=== PATIENT | male | born 1950 | race Two or more races ===

== ENCOUNTER → 2016-06-07 | Outpatient (CLI) | payer MEDICARE, MEDICAID ==
[~2016-06-07] MED LIST: CAR3125T PO; CLOP75TA28 PO; DIGO0.2570 PO; FURO20TA3 PO; SIMV10TA84 PO; SPIR25TA89 PO
== END | disposition home or self-care (01) ==
LOC: Rad HDHVI 09:02
PROVIDERS: ATTEND Internal Medicine Cardiovascular Disease
DX: I11.0 Hypertensive heart disease with heart failure (principal); I50.9 Heart failure, unspecified; I25.10 Atherosclerotic heart disease of native coronary artery without angina pectoris; R06.02 Shortness of breath; Z95.1 Presence of aortocoronary bypass graft
CPT/HCPCS: 71020

== ENCOUNTER → 2016-12-12 | Outpatient (CLI) | payer MEDICARE, MEDICAID ==
[2016-12-12 12:21] LABS: Basophils # (auto) 0.1 uL; Basophils % (auto) 0.8 % (0.0-2.0); CONDITION Y; Eosinophils # (auto) 0.2 uL; Eosinophils % (auto) 3.5 % (0.0-7.0); Hematocrit 45.8 % (41.0-53.0); Hemoglobin 15.4 g/dL (13.5-17.5); Lymphocytes # (auto) 2.9 uL; Lymphocytes % (auto) 43.3 % (10.0-50.0); Mean Corpuscular Hemoglobin 32.2 pg (28.0-32.0); Mean Corpuscular Hgb Conc. 33.6 g/dL (32.0-36.0); Mean Corpuscular Volume 95.9 fL (80.0-100.0); Mean Platelet Volume 9.8 fL (7.4-10.4); Monocytes # (auto) 0.5 uL; Monocytes % (auto) 7.8 % (0.0-12.0); Neutrophils % (auto) 44.6 % (37.0-80.0); Platelet Count (auto) 171 10^3/uL (140-450); Red Cell Distribution Width 14.5 % (11.6-16.0); White Blood Cell 6.7 10^3/uL (4.4-10.8)
[2016-12-12 12:40] LABS: Albumin 4.1 g/dL (3.4-5.0); BUN/Creatinine Ratio 13.8; Bilirubin, Direct 0.2 mg/dL (0-0.2); Bilirubin, Total 0.7 mg/dL (0.2-1.0); Calcium 9.8 mg/dL (8.5-10.1); Potassium 4.7 mmol/L (3.5-5.1); Total Protein 8.2 g/dL (6.4-8.2); Urine Bilirubin Negative (Negative); Urine Blood TRACE /uL (Negative); Urine Color Yellow (Yellow); Urine Glucose Normal (Normal); Urine Ketone Negative (Negative); Urine Nitrite Negative (Negative); Urine Urobilinogen Normal (Negative)
== END | disposition home or self-care (01) ==
LOC: LAB 08:14
PROVIDERS: ATTEND Internal Medicine Cardiovascular Disease
DX: E78.00 Pure hypercholesterolemia, unspecified (principal); I11.0 Hypertensive heart disease with heart failure; I50.21 Acute systolic (congestive) heart failure; K74.1 Hepatic sclerosis; E11.9 Type 2 diabetes mellitus without complications; R97.20 Elevated prostate specific antigen [PSA]; R53.81 Other malaise; E03.9 Hypothyroidism, unspecified; D64.9 Anemia, unspecified; E55.9 Vitamin D deficiency, unspecified; N39.0 Urinary tract infection, site not specified
CPT/HCPCS: 36415; 80048; 80061; 80076; 81003; 82306; 83036; 84153; 84403; 84443; 85025

== ENCOUNTER → 2017-01-30 | Outpatient (CLI) | payer MEDICARE, MEDICAID | END | disposition home or self-care (01) | LOC: LAB 08:28 | PROVIDERS: ATTEND Internal Medicine Cardiovascular Disease | DX: I25.10 Atherosclerotic heart disease of native coronary artery without angina pectoris (principal); J44.9 Chronic obstructive pulmonary disease, unspecified | CPT/HCPCS: 36415; 80162 ==

== ENCOUNTER → 2017-05-18 | Outpatient (CLI) | payer MEDICARE, MEDICAID ==
[~2017-05-18] VITALS: Ht 167.6 cm; Wt 70.8 kg
[~2017-05-18] MED LIST changes: +METF-370 PO
== END ==
LOC: Rad HDHVI 13:56
PROVIDERS: ATTEND Internal Medicine Cardiovascular Disease
DX: R07.89 Other chest pain (principal); R06.01 Orthopnea; I25.5 Ischemic cardiomyopathy; I50.23 Acute on chronic systolic (congestive) heart failure; E11.9 Type 2 diabetes mellitus without complications; I25.2 Old myocardial infarction; Z95.0 Presence of cardiac pacemaker
CPT/HCPCS: 78452; 93017; 96374; A9500

== ENCOUNTER → 2017-05-19 | Outpatient (CLI) | payer MEDICARE, MEDICAID | END | disposition home or self-care (01) | LOC: Rad HDHVI 07:54 | PROVIDERS: ATTEND Internal Medicine Cardiovascular Disease | DX: I08.1 Rheumatic disorders of both mitral and tricuspid valves (principal); I25.5 Ischemic cardiomyopathy | CPT/HCPCS: 93306 ==

== ENCOUNTER → 2017-06-05 | Outpatient (CLI) | payer MEDICARE, MEDICAID ==
[2017-06-05 13:20] VITALS: BP 100/58
[2017-06-05 13:40] VITALS: BP 91/61
[2017-06-05 16:15] LABS: Basophils # (auto) 0.1 uL; Basophils % (auto) 0.6 % (0.0-2.0); Eosinophils # (auto) 0.3 uL; Hematocrit 42.1 % (41.0-53.0); Hemoglobin 14.4 g/dL (13.5-17.5); Lymphocytes # (auto) 2.9 uL; Lymphocytes % (auto) 31.7 % (10.0-50.0); Mean Corpuscular Hemoglobin 32.2 pg (28.0-32.0); Mean Corpuscular Hgb Conc. 34.2 g/dL (32.0-36.0); Mean Corpuscular Volume 94.1 fL (80.0-100.0); Monocytes # (auto) 0.8 uL; Monocytes % (auto) 8.2 % (0.0-12.0); Neutrophils # (auto) 5.2 uL; Neutrophils % (auto) 56.5 % (37.0-80.0); Nucleated Red Blood Cells % 0.4 %; Red Blood Cells 4.47 10^6/uL (4.5-5.90); Red Cell Distribution Width 14.1 % (11.8-14.3); White Blood Cell 9.2 10^3/uL (4.4-10.8)
[2017-06-05 16:42] LABS: BUN/Creatinine Ratio 19.1; Calcium 8.8 mg/dL (8.5-10.1); Potassium 3.8 mmol/L (3.5-5.1)
[2017-06-05 16:58] LABS: Platelet Count (auto) 133 10^3/uL (140-450)
[2017-06-05 16:59] LABS: Partial Thromboplastin Time 25.9 sec (22.64-33.71); Prothrombin Time 10.9 sec (9.37-12.3)
== END | disposition home or self-care (01) ==
LOC: Rad HDHVI 12:59
PROVIDERS: ATTEND Internal Medicine Cardiovascular Disease
DX: Z01.812 Encounter for preprocedural laboratory examination (principal); I10 Essential (primary) hypertension; D64.9 Anemia, unspecified; R79.1 Abnormal coagulation profile
CPT/HCPCS: 36415; 71046; 80048; 85025; 85610; 85730; 93005; G0463

== ENCOUNTER 2017-06-07 08:05 | Day surgery (SDC) | payer MEDICARE, MEDICAID ==
[~2017-06-07] VITALS: Ht 167.6 cm; Wt 73.0 kg
[~2017-06-07 08:05] MED LIST changes: -SIMV10TA84 PO
[2017-06-07] MEDS ORDERED: VERAPAMIL 2.5MG/ML INJ 2ML VIAL IV ONE (08:44)
[2017-06-07] MEDS ORDERED: MIDAZOLAM HCL 1MG/1ML-2 ML VIAL ONE (08:44)
[2017-06-07] MEDS ORDERED: ANGIOMAX 250 MG VIAL IV ONE (08:44)
[2017-06-07] MEDS ORDERED: fentaNYL CITRATE 100 MCG/2 ML VL ONE (08:44)
[2017-06-07] MEDS ORDERED: LIDOCAINE 2%HCL (LOCAL ANESTH.) INJ 20ML MDV ONE (08:46)
[2017-06-07] MEDS ORDERED: IOHEXOL 350 MG/ML 100ML IJ ONE (08:46)
[2017-06-07] MEDS ORDERED: HEPARIN SODIUM (PORCINE) 5000 UNITS/ML 1ML VIAL ONE (09:57)
== END 2017-06-07 12:20 | disposition home or self-care (01) ==
LOC: CATH 08:05
PROVIDERS: ATTEND Internal Medicine
DX: I25.10 Atherosclerotic heart disease of native coronary artery without angina pectoris (principal); Z95.1 Presence of aortocoronary bypass graft; I70.8 Atherosclerosis of other arteries; E66.9 Obesity, unspecified; J44.9 Chronic obstructive pulmonary disease, unspecified; F32.9 Major depressive disorder, single episode, unspecified; I10 Essential (primary) hypertension; I25.2 Old myocardial infarction; E11.9 Type 2 diabetes mellitus without complications; I25.5 Ischemic cardiomyopathy
CPT/HCPCS: 93458; C1769; C1894; J1644; J2250; J3010; J7030; Q9967; 99152; 99153

== ENCOUNTER → 2017-07-20 | Outpatient (CLI) | payer MEDICARE, MEDICAID ==
[~2017-07-20] MED LIST changes: +cefTRIAXone 1GM/10ml IVPUSH 10 ML IV ONE; +cefTRIAXone 1GM/10ml IVPUSH 10 ML IV SCH
[2017-07-20 15:40] VITALS: BP 105/59
== END | disposition home or self-care (01) ==
LOC: Rad HDHVI 14:57
PROVIDERS: ATTEND Internal Medicine
DX: I25.10 Atherosclerotic heart disease of native coronary artery without angina pectoris (principal); R07.89 Other chest pain; J44.9 Chronic obstructive pulmonary disease, unspecified; I10 Essential (primary) hypertension; I42.9 Cardiomyopathy, unspecified; I25.2 Old myocardial infarction; F32.9 Major depressive disorder, single episode, unspecified; D64.9 Anemia, unspecified; Z95.810 Presence of automatic (implantable) cardiac defibrillator; Z95.1 Presence of aortocoronary bypass graft; Z98.890 Other specified postprocedural states
CPT/HCPCS: 71046; 96365; G0463

== ENCOUNTER → 2018-06-28 | Outpatient (CLI) | payer MEDICARE, MEDICAID ==
[~2018-06-28] MED LIST changes: +SPIR25TA8 PO; -SPIR25TA89 PO; -cefTRIAXone 1GM/10ml IVPUSH 10 ML IV ONE; -cefTRIAXone 1GM/10ml IVPUSH 10 ML IV SCH
[2018-06-28 12:22] LABS: Basophils # (auto) 0.1 uL; Basophils % (auto) 1.3 % (0.0-2.0); Eosinophils # (auto) 0.2 uL; Eosinophils % (auto) 3.2 % (0.0-7.0); Hematocrit 45.4 % (41.0-53.0); Hemoglobin 15.3 g/dL (13.5-17.5); Lymphocytes # (auto) 2.5 uL; Lymphocytes % (auto) 41.6 % (10.0-50.0); Mean Corpuscular Hemoglobin 31.7 pg (28.0-32.0); Mean Corpuscular Hgb Conc. 33.7 g/dL (32.0-36.0); Monocytes # (auto) 0.4 uL; Monocytes % (auto) 7.2 % (0.0-12.0); Neutrophils # (auto) 2.8 uL; Neutrophils % (auto) 46.7 % (37.0-80.0); Nucleated Red Blood Cells % 0.7 %; Platelet Count (auto) 152 10^3/uL (140-450); Red Blood Cells 4.83 10^6/uL (4.5-5.90); Red Cell Distribution Width 13.7 % (11.8-14.3)
[2018-06-28 12:23] LABS: Potassium 4.4 mmol/L (3.5-5.1)
[2018-06-28 12:31] LABS: Free T4 (Free Thyroxine) 1.12 ng/dL (0.89-1.76); Prostate Specific Antigen 0.3 ng/mL (0.0-4.0)
[2018-06-28 12:32] LABS: Albumin 4.2 g/dL (3.4-5.0); BUN/Creatinine Ratio 14.6; Bilirubin, Total 0.5 mg/dL (0.2-1.0); Calcium 9.6 mg/dL (8.5-10.1); Total Protein 8.3 g/dL (6.4-8.2)
[2018-06-28 12:34] LABS: Urine Blood 1+ /uL (Negative)
== END | disposition home or self-care (01) ==
LOC: LAB 08:24
PROVIDERS: ATTEND Internal Medicine Cardiovascular Disease
DX: E55.9 Vitamin D deficiency, unspecified (principal); E03.9 Hypothyroidism, unspecified; E11.9 Type 2 diabetes mellitus without complications; C61 Malignant neoplasm of prostate; D51.9 Vitamin B12 deficiency anemia, unspecified; N39.0 Urinary tract infection, site not specified
CPT/HCPCS: 36415; 80053; 80061; 81003; 82306; 82607; 83036; 84153; 84403; 84439; 84443; 85025

== ENCOUNTER → 2018-10-31 | Outpatient (CLI) | payer MEDICARE, MEDICAID | END | disposition home or self-care (01) | LOC: Rad HDHVI 09:42 | PROVIDERS: ATTEND Internal Medicine | DX: I08.8 Other rheumatic multiple valve diseases (principal); I11.0 Hypertensive heart disease with heart failure; I50.9 Heart failure, unspecified | CPT/HCPCS: 93306 ==

== ENCOUNTER 2018-12-20 20:12 | Inpatient (IN) | payer MEDICARE, MEDICAID ==
[~2018-12-20] VITALS: Ht 154.9 cm; Wt 85.0 kg
[2018-12-20] MEDS ORDERED: EPINEPHrine HCL 1 MG/10 ML SYRG IV ONE ×5 (20:15→20:29)
[2018-12-20] MEDS ORDERED: SODIUM BICARBONATE 8.4 % INJ 50ML VIAL IV ONE ×4 (20:15→20:52)
[2018-12-20] MEDS ORDERED: SODIUM BICARBONATE 8.4% INJ 50ML SYRINGE ONE (20:30)
[2018-12-20] MEDS ORDERED: NOREPINEPHRINE 8 MG/250ML KIT 250 ML IV ONE (20:32)
[2018-12-20] MEDS: NOREPINEPHRINE 8 MG/250ML KIT 250 ML IV SCH (20:36)
[2018-12-20] MEDS ORDERED: EPINEPHrine HCL 1 MG/10 ML SYRG ONE (20:44)
[2018-12-20 21:00] LABS: Hemoglobin 16.6 g/dL (13.5-17.5); Mean Corpuscular Hemoglobin 31.9 pg (28.0-32.0); Mean Corpuscular Hgb Conc. 31.2 g/dL (32.0-36.0)
[2018-12-20] MEDS ORDERED: SODIUM BICARBONATE 50ML VIAL 100 ML in D5W 5% 1,000 ML IV ONE (21:00)
[2018-12-20 21:07] LABS: Hematocrit 53.3 % (41.0-53.0); Mean Corpuscular Volume 102.5 fL (80.0-100.0); Platelet Count (auto) 162 10^3/uL (140-450); Red Cell Distribution Width 16.2 % (11.8-14.3); White Blood Cell 14.2 10^3/uL (4.4-10.8)
[2018-12-20 21:17] LABS: Albumin 3.9 g/dL (3.4-5.0); BUN/Creatinine Ratio 9.5; Calcium 9.6 mg/dL (8.5-10.1); Potassium 3.8 mmol/L (3.5-5.1)
[2018-12-20 21:18] LABS: Band Neutrophils % (manual) 0; Basophils % (manual) 0 (0.0-2.0); Blast Cells 0; Metamyelocytes % 0; Myelocytes % 0; Promyelocytes % 0; Reactive Lymphocytes 0
[2018-12-20 21:19] LABS: INR 1.08 (0.9-1.15); Partial Thromboplastin Time 32.9 sec (23.64-32.05)
[2018-12-20 21:22] LABS: Bilirubin, Total 0.4 mg/dL (0.2-1.0); Total Protein 8.5 g/dL (6.4-8.2)
[2018-12-20 21:31] LABS: Urine Bacteria NONE SEEN /hpf (None Seen); Urine Blood 1+ /uL (Negative); Urine Mucus FEW (None Seen); Urine Sperm PRESENT /hpf (None Seen); Urine WBC 5 /hpf (0 - 3)
[2018-12-20 21:34] VITALS: BP 62/41
[2018-12-20] MEDS ORDERED: MIDAZOLAM DRIP 50 mg/50mL 50 ML IV ONE (21:37)
[2018-12-20] MEDS ORDERED: LEVOFLOXACIN 500MG 100 ML IV ONE (21:45)
[2018-12-20] MEDS ORDERED: SODIUM CHLORIDE 0.9% 1,000 ML IV ONE (21:45)
[2018-12-20] MEDS ORDERED: cefTRIAXone 1GM/50ML D5W 50 ML IV ONE (21:45)
[2018-12-20] MEDS: MIDAZOLAM DRIP 50 mg/50mL 50 ML IV SCH (21:58)
[2018-12-20 22:37] LABS: Eosinophils % (manual) 1 (0-7); Lymphocytes % (manual) 75 (10.0-50.0); Monocytes % (manual) 4 (0-12)
[2018-12-20 22:54] VITALS: BP 128/77
[2018-12-20] MEDS ORDERED: LORazepam 2MG/ML-1ML VIAL IV ONE (23:45)
[2018-12-21] VITALS (86 sets, daily range): BP systolic 78–125; BP diastolic 21–89
[2018-12-21] MEDS ORDERED: FUROSEMIDE 20 MG/2 ML VIAL IV ONE
--- NOTE | 2018-12-21 00:05 | NUR ---
Respiratory note: NEW VENT ORDERS PER DR. PETTY. AC 18/550/+10 100% FIO2. ABG TO FOLLOW IN ONE HOUR, WILL CONTINUE TO MONITOR.
[2018-12-21 01:10] LABS: Lactic Acid w/Reflex 11.6 mmol/L (0.4-2.0)
[2018-12-21] MEDS: fentaNYL Drip 2500mCg/250mlNS 250 ML IV SCH (01:34)
[2018-12-21] MEDS ORDERED: ENOXAPARIN SOD 30 MG/0.3 ML SYRINGE IV ONE (01:45)
[2018-12-21] MEDS ORDERED: VANCOMYCIN 1GM/250ML 250 ML IV ONE (01:45)
--- NOTE | 2018-12-21 01:50 | NUR ---
Respiratory note: ABG RESULTS REPORTED TO DR. PETTY, NO NEW RESPIRATORY ORDERS GIVEN AT THIS TIME, WILL CONTINUE TO MONITOR.
[2018-12-21] MEDS ORDERED: NOREPINEPHRINE 8 MG/250ML KIT 250 ML IV SCH (02:15)
[2018-12-21] MEDS ORDERED: MIDAZOLAM DRIP 50 mg/50mL 50 ML IV SCH (02:15)
[2018-12-21] MEDS ORDERED: fentaNYL Drip 2500mCg/250mlNS 250 ML IV SCH (02:15)
[2018-12-21] MEDS ORDERED: DEXTROSE (50%) 50ML SYRG IV PRN (03:45)
[2018-12-21] MEDS: ACCU-CHEK COMFORT CURVE STRIP VI SCH ×5 (04:00→20:50)
[2018-12-21] MEDS: InsuLIN REG 1unit/0.01ml Soln (100units/ml) SC SCH ×5 (04:00→21:00)
--- NOTE | 2018-12-21 04:00 | NUR ---
ARRIVAL NOTE PATIENT ARRIVED TO ICU AND PLACED IN ROOM 107. VS ON ARRIVAL, HR 107, RR 25, SPO2 97%, BP 92/46, RECTAL TEMP 100.4. RECEIVED PT ON LEVO AT 30 MCG. 1 AMP BICARB GTT AT 100 MLS/HR. PT HAVE LEFT SUBCLAVIAN TLC, RIGHT AC 18 GAUGE AND LEFT AC 20 GAUGE. IV SITES BENIGN. RECEIVED PT WITH CORADO IN PLACE. PT PLACED ON COOLING BLANKET. PT ON VENTILATOR. RECEIVED PT ON SEDATION, VERSED AT 15 MG/HR AND FENTANYL AT 100 MCG/HR. PT HAS HYPO COUGH AND GAG, PUPILS 2 AND SLUGGISH. SKIN INTACT EXCEPT I.O. SITE AND ABRASION ON STERNUM. SUCTION TUBING AND BVM AT BEDSIDE. BED LOCKED AND IN LOWEST POSITION, SAFETY PRECAUTIONS IN PLACE. WILL CONTINUE WITH CARE.
[2018-12-21] MEDS ORDERED: VASOPRESSIN 20 UNIT/ML ONE ×2 (04:20→04:25)
[2018-12-21] MEDS: SODIUM BICARBONATE 50ML VIAL 150 ML in D5W 5% 1,000 ML IV SCH ×2 (04:47→16:42)
--- NOTE | 2018-12-21 04:48 | NUR ---
BLOOD SUGARS ACCUCHECK 442, REPEATED 480. 15 UNITS GIVEN PER INSULIN SCALE. HOSPITALIST PAGED AT THIS TIME.
--- NOTE | 2018-12-21 04:49 | NUR ---
WOUND CARE WOUND CARE PHOTOS TAKEN OF ABRASION ON STERNUM. FORM FAST PLACED IN WOUND CARE FOLDER.
--- NOTE | 2018-12-21 04:59 | NUR ---
CALLED DR ANGULO MESSAGE LEFT WITH ANSWERING SERVICE IN REGARDS TO BS OF 480.
[2018-12-21] MEDS: MIDAZOLAM DRIP 50 mg/50mL 50 ML IV SCH (05:30)
[2018-12-21] MEDS: VASOPRESSIN 50 UNITS in D5W 5% 247.5 ML IV SCH ×2 (05:33→17:26)
--- NOTE | 2018-12-21 06:02 | NUR ---
BS REASSESSMENT, ACCUCHECK REDONE. BS 409 AT THIS TIME.
[2018-12-21 06:24] LABS: Hematocrit 45.6 % (41.0-53.0); Mean Corpuscular Hemoglobin 31.8 pg (28.0-32.0); Mean Corpuscular Volume 96.4 fL (80.0-100.0); Platelet Count (auto) 161 10^3/uL (140-450); Red Blood Cells 4.73 10^6/uL (4.5-5.90); Red Cell Distribution Width 15.2 % (11.8-14.3); White Blood Cell 19.2 10^3/uL (4.4-10.8)
--- NOTE | 2018-12-21 06:34 | NUR ---
ORDER RECEIVED FROM DR ANGULO TO GIVE PT 20 UNITS INSULIN IV AND RECHECK BS.
[2018-12-21 06:37] LABS: Potassium 3.1 mmol/L (3.5-5.1)
[2018-12-21 06:44] LABS: Albumin 2.7 g/dL (3.4-5.0); BUN/Creatinine Ratio 9.9; Bilirubin, Total 0.6 mg/dL (0.2-1.0); Calcium 8.1 mg/dL (8.5-10.1); Total Protein 5.9 g/dL (6.4-8.2)
[2018-12-21] MEDS ORDERED: InsuLIN REG 1unit/0.01ml Soln (100units/ml) IV ONE (06:45)
[2018-12-21 06:58] LABS: Basophils % (manual) 0 (0.0-2.0); Blast Cells 0; Eosinophils % (manual) 0 (0-7); Myelocytes % 0; Promyelocytes % 0; Reactive Lymphocytes 0
--- NOTE | 2018-12-21 07:30 | NUR ---
REPORT RECEIVED, ASSUMING CARE
[2018-12-21 08:01] LABS: Band Neutrophils % (manual) 23; Lymphocytes % (manual) 11 (10.0-50.0); Metamyelocytes % 1; Monocytes % (manual) 3 (0-12)
--- NOTE | 2018-12-21 08:30 | NUR ---
WARMING MEASURES PROVIDED FOR TEMP SEE VS SPREADSHEET
--- NOTE | 2018-12-21 08:33 | NUR ---
Respiratory note: INCREASED PATIENT'S RR TO [address] ANGULO. VENTILATOR SETTINGS ARE RR 25, VT 550, PEEP +10. FIO2 WAS DECREASED TO 80%, SPO2 MAINTAINED AT 96%. YANICK DODGE IS AWARE AND NOTIFIED.
--- NOTE | 2018-12-21 08:35 | NUR ---
SPOKE WITH DR ANGULO, DR AWARE ABG RESULTS, AWARE OF POTASSIUM LEVEL, AWARE OF LABS INCLUDING BUN/CREAT/TROPS. NEW ORDER RECEIVED TO KEEP IVF ORDERED, CHANGE RR ON VENT TO 25 AND GIVE POTASSIUM 40 MEQ IV RIDER, WITH ABG IN [address] DID NOT WANT ANY SODIUM BICARBONATE. MIRZA RT AWARE AND MADE VENT CHANGES.
--- NOTE | 2018-12-21 08:35 | NUR ---
Respiratory note: INCREASED RR TO [address] ANGULO, WILL DRAW ABG AFTER ONE HOUR OF VENTILATOR CHANGE. YANICK DODGE IS AWARE. Addendum: 12/21/18 at 1603 by JS NATH, RT RT CORRECTION INCREASED RR TO 28 AT 1057.
--- NOTE | 2018-12-21 08:55 | NUR ---
SPOKE WITH DR NAIF PADILLA IN 50'S AND MAXED OUT ON LEVOPHED, VASOPRESSIN. NEW ORDER RECEIVED FOR NEOSYNEPHRINE IV DRIP. PHARMACY CALLED AND WILL MIX BAG AND SEND.
[2018-12-21] MEDS: POTASSIUM CHL 20MEQ/100ML 100 ML IV SCH ×2 (08:57→10:45)
[2018-12-21] MEDS: PHENYLEPHRINE INJ 20 MG in D5W 5% 250 ML IV SCH ×2 (09:15→11:50)
[2018-12-21] MEDS ORDERED: ENOXAPARIN SOD 60 MG/0.6 ML SYRINGE SC ONE (10:00)
[2018-12-21] MEDS ORDERED: cefTRIAXone 1GM/50ML D5W 50 ML IV ONE (10:00)
[2018-12-21] MEDS ORDERED: DIGOXIN 0.25 MG TAB PO ONE (10:00)
[2018-12-21] MEDS ORDERED: SODIUM CHLORIDE 0.9% 500 ML IV ONE ×2 (11:00→13:45)
--- NOTE | 2018-12-21 11:01 | NUR ---
SPOKE WITH DR KEV DR AWARE LATEST ABG RESULTS AND POSSIBLE NEED FOR FOURTH VASOPRESSOR MEDICATION. DR GAVE ORDER TO INCREASE RESP RATE TO 28 AND GIVE NS BOLUS OF [address] DOES NOT WANT ANY SODIUM BICARBONATE AND AWARE PATIENT ON D5W WITH 1 AMP HCO3 AT 100 ML/HR.
[2018-12-21] MEDS ORDERED: PHENYLEPHRINE IV 250 ML IV ONE ×2 (11:42→13:59)
--- NOTE | 2018-12-21 12:00 | NUR ---
WOUND CARE NOTE: PATIENT RECENTLY ADMITTED TO [facility] WITH DIAGNOSIS OF SEPSIS. HE IS S/P CPR. CURRENT DILLON IS 10. PATIENT IS INTUBATED, SEDATED ON MULTIPLE VASOPRESSORS FOR HEMODYNAMIC CONTROL. PATIENT RECEIVED A CONTACT BURN FROM THE DEFIBRILATOR PAD TO THE STERNUM DURING CPR. WOUND WAS PHOTOGRAPHED BY ADMITTING BEDSIDE NURSE. SKIN IS INTACT, ABRADED. LEFT OPEN TO AIR. SKIN/WOUND CARE PLAN IMPLEMENTED D/T IMMOBILITY/WOUND. RECOMMEND: FREQUENT TURN SCHEDULE Q 2 HOURS, PRN CONDITION PERMITS, WITH PRESSURE REDISTRIBUTION USING PILLOWS/WEDGES, BID/PRN APPLICATION WITH MOISTURE BARRIER CREAM, OPTIFOAM GENTLE SACRAL DRESSING PREVENTATIVE, DIETARY CONSULT, SKIN/WOUND CARE PLAN, CONTINUED MONITORING BY WOUND CARE TEAM.
--- NOTE | 2018-12-21 13:47 | NUR ---
Respiratory note: INCREASED RR TO [address] ANGULO. WILL DRAW ABG IN ONE HOUR. YANICK DODGE IS AWARE.
[2018-12-21] MEDS: PHENYLEPHRINE INJ 80 MG in SODIUM CHL 0.9% 250 ML IV SCH ×2 (13:54→22:16)
[2018-12-21] MEDS: methylPREDNISolone SOD SUCC 40 MG/ML VL IV SCH ×2 (14:26→22:50)
--- NOTE | 2018-12-21 14:30 | NUR ---
DR ANGULO AT BEDSIDE, SPOKE WITH FAMILY REGARDING PATIENT CONDITION
[2018-12-21] MEDS ORDERED: EPINEPHrine HCL 1 MG/10 ML SYRG IV ONE (14:33)
[2018-12-21] MEDS ORDERED: AMIODARONE HCL (50 MG/ ML) 3 ML VIAL IV ONE (14:33)
[2018-12-21] MEDS ORDERED: SODIUM BICARBONATE 8.4% INJ 50ML SYRINGE IV ONE (14:33)
[2018-12-21] MEDS ORDERED: CALCIUM CHL(10%) 100MG/ML 10ML VIAL IV ONE (14:33)
[2018-12-21] MEDS ORDERED: MAGNESIUM SULF 50% 40 MEQ/10 ML VL IV ONE (14:33)
--- NOTE | 2018-12-21 15:24 | NUR ---
Respiratory note: CHANGED PATIENT TO HEATED CIRCUIT WITHOUT ANY INCIDENT. PATIENT WAS MANUALLY VENTILATED AND THEN PLACED BACK ON VENTILATOR WITH PREVIOUS SETTINGS. TITRATED FIO2 TO 60%. PATIENT'S SP02 96%. YANICK DODGE IS AWARE, WILL CONTINUE TO MONITOR PATIENT.
[2018-12-21] MEDS ORDERED: SODIUM BICARBONATE 8.4 % INJ 50ML VIAL IV ONE (15:30)
[2018-12-21] MEDS ORDERED: ALBUMIN 25% 200 ML IV ONE (16:45)
--- NOTE | 2018-12-21 17:30 | NUR ---
COOLING BLANKET TURNED ON FOR TEMP 101 SEE VS SPREADSHEET
[2018-12-21 18:01] LABS: Hematocrit 43.2 % (41.0-53.0); Hemoglobin 14.1 g/dL (13.5-17.5); Mean Corpuscular Hemoglobin 31.3 pg (28.0-32.0); Mean Corpuscular Hgb Conc. 32.6 g/dL (32.0-36.0); Mean Corpuscular Volume 96.1 fL (80.0-100.0); Platelet Count (auto) 120 10^3/uL (140-450); Red Blood Cells 4.49 10^6/uL (4.5-5.90); White Blood Cell 27.2 10^3/uL (4.4-10.8)
[2018-12-21 18:03] LABS: Basophils % (manual) 0 (0.0-2.0); Blast Cells 0; Eosinophils % (manual) 0 (0-7); Myelocytes % 0; Promyelocytes % 0; Reactive Lymphocytes 0
[2018-12-21 18:07] LABS: Albumin 2.4 g/dL (3.4-5.0); Potassium 4.2 mmol/L (3.5-5.1)
[2018-12-21 18:10] LABS: BUN/Creatinine Ratio 10.1; Bilirubin, Total 1.3 mg/dL (0.2-1.0)
--- NOTE | 2018-12-21 18:28 | NUR ---
SPOKE WITH DR ANGULO, AWARE OF LATEST ABG RESULTS, NO NEW VENTILATOR CHANGES AND TO KEEP RR AT 30 WITH ABG IN AM. AWARE OF LATEST SET OF LABS. AWARE OF BP AND TO SLOWLY TITRATE DOWN NEOSYNEPHRINE
--- NOTE | 2018-12-21 19:28 | NUR ---
REPORT GIVEN TO VALERIE HERNDON
--- NOTE | 2018-12-21 19:45 | NUR ---
TEMP PT WITH RECTAL TEMP 102.6. COOLING BLANKET IN PLACE. ICE PAKS PLACED TO LAZARUS AXILLA AND LAZARUS GROIN. ADDITIONAL COOLING BLANKET ADDED. SHEET USED BARRIER BETWEEN BLANKET AND SKIN. WILL CONTINUE TO MONITOR.
--- NOTE | 2018-12-21 20:00 | NUR ---
OPEN ASSUMED CARE OF MALE PT ORALLY INTUBATED. PT ON NO SEDATION. NON RESPONSIVE. SINUS TACH ON WATER CHASER WITH LEVOPHED GTT MAX DOSE 30 MCG/MIN, VASOPRESSIN MAX DOSE 0.07 UNITS/HR, AND PHENYLEPHRINE QUAD CONCENTRATE AT MAX DOSE 180 MCG/MIN. HCO3- GTT INFUSING AT 100 ML/HR. PT WITH RECTAL TEMPS > 102.5 AND CLIMBING. COOLING MEASURES IN PLACE. OGT IN PLACE CLAMPED. L. IJ TLC IN PLACE. 18 G IV TO R. F/A B&P, 20 GIV TO L AC B&P. CORADO TO GRAVITY DRAINING LIGHT JAVIER URINE. ABRASION IN PLACE TO ANTERIOR CHEST OPEN TO AIR. LAZARUS SCD'S IN PLACE. NO INDICATION OF PAIN OBSERVED. BED IN LOWEST LOCKED POSITION. SIDE RAILS UP X 2. HOB ELEVATED 30 DEGREES. ALARMS AUDIBLE. PT IN FULL VIEW OF RN STATION WILL CONTINUE TO MONITOR.
[2018-12-21 20:10] LABS: Band Neutrophils % (manual) 20; Lymphocytes % (manual) 12 (10.0-50.0); Metamyelocytes % 3; Monocytes % (manual) 2 (0-12)
--- NOTE | 2018-12-21 20:30 | NUR ---
FAMILY TO BEDSIDE. PT FAMILY TO BEDSIDE. UPDATED REGARDING PT CONDITION AND PLAN OF CARE.
[2018-12-21] MEDS: NOREPINEPHRINE 8 MG/250ML KIT 250 ML IV SCH (20:45)
--- NOTE | 2018-12-21 21:15 | NUR ---
RESP/ DECREASED O2 SATS PT O2 SATS ON 60% FIO2 86 %. Argenis CAVAZOS.
--- NOTE | 2018-12-21 21:30 | NUR ---
REASSESS RESP R.T. PLACED PT ON 100% FIO2
[2018-12-21] MEDS: IPRATROPIUM BROM 0.5 MG/2.5ML INH SOL NEB SCH (21:37)
--- NOTE | 2018-12-21 22:00 | NUR ---
RR/SEDATION PT WITH RATE SET AT 30 ON VENT. OVERBREATHING IN THE MID 30'S. FENTANYL RESTARTED AT 50 MCG/HR.
[2018-12-22] VITALS (101 sets, daily range): BP systolic 71–129; BP diastolic 41–95
[2018-12-22] MEDS: InsuLIN REG 1unit/0.01ml Soln (100units/ml) SC SCH ×6 (00:30→22:07)
[2018-12-22] MEDS: fentaNYL Drip 2500mCg/250mlNS 250 ML IV SCH ×2 (01:22→18:07)
[2018-12-22] MEDS: NOREPINEPHRINE 8 MG/250ML KIT 250 ML IV SCH ×3 (01:45→15:00)
--- NOTE | 2018-12-22 03:00 | NUR ---
BATH/LINEN CHANGE PT GIVEN PARTIAL BED BATH WITH CHLORHEXIDINE WIPES. PARTIAL LINEN CHANGE PROVIDED.
[2018-12-22 04:35] LABS: Hematocrit 41.8 % (41.0-53.0); Hemoglobin 13.8 g/dL (13.5-17.5); Mean Corpuscular Hemoglobin 31.9 pg (28.0-32.0); Mean Corpuscular Hgb Conc. 33.1 g/dL (32.0-36.0); Mean Corpuscular Volume 96.5 fL (80.0-100.0); Platelet Count (auto) 110 10^3/uL (140-450); Red Blood Cells 4.33 10^6/uL (4.5-5.90); Red Cell Distribution Width 15.4 % (11.8-14.3)
[2018-12-22 04:38] LABS: White Blood Cell 30.3 10^3/uL (4.4-10.8)
[2018-12-22 04:40] LABS: Basophils % (manual) 0 (0.0-2.0); Blast Cells 0; Eosinophils % (manual) 0 (0-7); Myelocytes % 0; Promyelocytes % 0; Reactive Lymphocytes 0
[2018-12-22 04:54] LABS: Albumin 2.6 g/dL (3.4-5.0); BUN/Creatinine Ratio 9.8; Calcium 6.9 mg/dL (8.5-10.1); Potassium 4.3 mmol/L (3.5-5.1)
[2018-12-22 04:59] LABS: Bilirubin, Total 1.5 mg/dL (0.2-1.0); Total Protein 5.6 g/dL (6.4-8.2)
[2018-12-22] MEDS: ACCU-CHEK COMFORT CURVE STRIP VI SCH ×6 (05:00→22:00)
[2018-12-22 05:02] LABS: Lactic Acid w/Reflex 14.2 mmol/L (0.4-2.0)
[2018-12-22 05:28] LABS: Band Neutrophils % (manual) 20; Lymphocytes % (manual) 9 (10.0-50.0); Metamyelocytes % 9; Monocytes % (manual) 2 (0-12)
[2018-12-22] MEDS ORDERED: NOREPINEPHRINE BITARTRATE 1 ML IV ONE (05:30)
[2018-12-22] MEDS: methylPREDNISolone SOD SUCC 40 MG/ML VL IV SCH ×2 (05:48→14:04)
[2018-12-22] MEDS: PHENYLEPHRINE INJ 80 MG in SODIUM CHL 0.9% 250 ML IV SCH (05:49)
[2018-12-22] MEDS: IPRATROPIUM BROM 0.5 MG/2.5ML INH SOL NEB SCH ×3 (07:08→22:14)
--- NOTE | 2018-12-22 08:47 | NUR ---
Respiratory note: LM FOR DR ANGULO TO RETURN CALL FOR READ BACK OF CRITICAL ABG VALUES. RN MADE AWARE.
--- NOTE | 2018-12-22 08:52 | NUR ---
PAGED DR ANGULO REGARDING ABG RESULTS, LABS INCLUDING BNP AND TO OBTAIN MEDICATION ORDERS INCLUDING POSSIBLE LASIX.
[2018-12-22] MEDS ORDERED: FUROSEMIDE 40 MG/4 ML VIAL IV ONE (09:00)
--- NOTE | 2018-12-22 09:00 | NUR ---
SPOKE WITH DR ANGULO, NEW ORDERS RECEIVED
[2018-12-22] MEDS: DOBUTamine 1000MCG/ML 250 ML IV SCH ×2 (09:28→19:26)
[2018-12-22] MEDS: PIPERACILLIN-TAZOB 3.375GM 100 ML IV SCH ×2 (09:55→17:39)
[2018-12-22] MEDS: FAMOTIDINE 20 MG TAB NG SCH (09:56)
[2018-12-22] MEDS ORDERED: ENOXAPARIN SOD 60 MG/0.6 ML SYRINGE SC SCH (10:00)
[2018-12-22] MEDS: SODIUM BICARBONATE 50ML VIAL 50 ML in D5W 5% 1,000 ML IV SCH ×3 (11:00)
--- NOTE | 2018-12-22 11:00 | NUR ---
RESTARTED SEDATION DUE TO RR 40'S-50'S NOT WAKING UP OR ABLE TO FOLLOW COMMANDS WITH HR 120-130. SEE IV SPREADSHEET.
--- NOTE | 2018-12-22 12:45 | NUR ---
Respiratory note: RN MADE AWARE OF CRITICAL ABG VALUES. DR ANGULO PAGED.
--- NOTE | 2018-12-22 13:00 | NUR ---
PAGED DR ANGULO REGARDING LATEST ABG RESULTS AWAITING CALL BACK
[2018-12-22] MEDS ORDERED: SODIUM BICARBONATE 8.4 % INJ 50ML VIAL IV ONE (13:45)
--- NOTE | 2018-12-22 14:00 | NUR ---
DR ANGULO AT BEDSIDE AND NEW ORDERS OBTAINED FOR PULMONARY CONSULT AND 1 AMP SODIUM BICARBONATE IVP
--- NOTE | 2018-12-22 14:15 | NUR ---
Nutrition consult/assessment Notes please see attached link for complete assessment Estimated needs BW (80 kg)- 2419-8472 kcal (23-25 kcal/kgBW), 64-80 g protein (0.8-1.0 g/kg BW r/t elev RFT). Will continue to monitor pertinent labs and reassess nutrient need prn Rec: EN support with Glucerna @ 60 ml.hr per MD approval Addendum: 12/22/18 at [address] Amended: Links added.
--- NOTE | 2018-12-22 15:30 | NUR ---
DR STINSON AT BEDSIDE AND PLACED LEFT RADIAL ARTERIAL LINE AFTER OBTAINING CONSENT FROM FAMILY. GAVE OK FOR DAUGHTER DUTCH VILLANUEVA TO SIGN CONSENT. PATIENT TOLERATED PROCEDURE WELL. DR SPOKE TO DAUGHTER REGARDING PATIENT CONDITION PRIOR TO ARTERIAL LINE INSERTION.
--- NOTE | 2018-12-22 16:41 | NUR ---
SPOKE WITH DR STINSON REGARDING ABG RESULTS, NEW ORDER FOR ABG AND CXR IN AM. ORDERS PLACED AND RT AWARE.
[2018-12-22] MEDS: HYDROCORTISONE SOD SUCC 100 MG/2ML INJ VIAL IV SCH (17:39)
--- NOTE | 2018-12-22 20:00 | NUR ---
BP/LEVOPHED PATIENT'S BP STABLE/WITHIN ACCEPTABLE RANGE IV LEVOPHED WEANED DOWN SLOWLY SEE IV SPREADSHEET
--- NOTE | 2018-12-22 20:00 | NUR ---
OPEN NOTES Received report from YANICK Reeves at 1900hrs Patient is sedated with IV Fentanyl and Versed. Pupils both sluggishly reactive to light. No cough and gag noted. will decrease sedation. Patient is intubated on AC mode, Fio2 50%. Saturating 96%. Suctioned some small amount bloody secretions from oral and ETT. Patient breaths with the vent at 30/min. HR 115-119/min V-paced rhythm noted. BP stable - on pressors : IV Levophed at 30mcg/min, IV Tripp at 180mcg/min and IV Dobutamine at 2.5mcg/kg/min. OGT in placed connected to LIS with brownish output. Corona catheter with yellowish to light noam colored urine. Left IJ TLC - dressing intact. IV peripheral lines -saline flushed. Left radial Arterial line levelled and zeroed, with good wave form noted. sometimes positional. will put hand on splint. Repositioned, oral care done. Skin assessed -refer wound chart will continue to monitor
--- NOTE | 2018-12-22 20:50 | NUR ---
FAMILY AT BEDSIDE TALKED TO DUTCH(PT'S DAUGHTER), NEPHEW AND PATIENT'S . UPDATED THEM OF POC AND PATIENT'S CONDITION. DUTCH TRANSLATE EVERYTHING TO HER MOTHER IN UPPER SORBIAN. ALL QUESTIONS ANSWERED. VERBALIZED UNDERSTANDING
[2018-12-22] MEDS: MIDAZOLAM DRIP 50 mg/50mL 50 ML IV SCH (21:30)
[2018-12-23] VITALS (107 sets, daily range): BP systolic 83–230; BP diastolic 44–98
[2018-12-23] MEDS: NOREPINEPHRINE 8 MG/250ML KIT 250 ML IV SCH ×2 (00:24→08:39)
[2018-12-23] MEDS: HYDROCORTISONE SOD SUCC 100 MG/2ML INJ VIAL IV SCH ×2 (00:27→05:49)
[2018-12-23] MEDS ORDERED: PHENYLEPHRINE HCL 10 MG/ML VL ONE (00:36)
[2018-12-23] MEDS ORDERED: PHENYLEPHRINE IV 250 ML IV ONE (00:36)
[2018-12-23] MEDS: ACCU-CHEK COMFORT CURVE STRIP VI SCH ×5 (00:54→16:50)
[2018-12-23] MEDS: InsuLIN REG 1unit/0.01ml Soln (100units/ml) SC SCH ×5 (00:58→16:00)
[2018-12-23] MEDS: SODIUM BICARBONATE 50ML VIAL 50 ML in D5W 5% 1,000 ML IV SCH (01:26)
[2018-12-23] MEDS: PIPERACILLIN-TAZOB 3.375GM 100 ML IV SCH ×2 (01:49→10:06)
[2018-12-23] MEDS: DOBUTamine 1000MCG/ML 250 ML IV SCH ×2 (01:58→16:50)
[2018-12-23] MEDS: PHENYLEPHRINE INJ 80 MG in SODIUM CHL 0.9% 250 ML IV SCH ×2 (02:33→10:21)
[2018-12-23] MEDS: VASOPRESSIN 50 UNITS in D5W 5% 247.5 ML IV SCH (04:00)
--- NOTE | 2018-12-23 04:00 | NUR ---
SEDATION Versed was decreased slowly - now at 2mg/hr Fentanyl kept at same rate See IV spreadsheet for titration
--- NOTE | 2018-12-23 05:00 | NUR ---
HYGIENE PATIENT CLEANED WITH CHG WIPES. LINENS CHANGED. SKIN ASSESSED. REPOSITIONED PATIENT. ORAL CARE DONE.
[2018-12-23 05:57] LABS: Red Blood Cells 3.33 10^6/uL (4.5-5.90); Red Cell Distribution Width 15.1 % (11.8-14.3); White Blood Cell 16.9 10^3/uL (4.4-10.8)
[2018-12-23 05:59] LABS: Hematocrit 31.3 % (41.0-53.0); Hemoglobin 10.8 g/dL (13.5-17.5); Mean Corpuscular Hemoglobin 32.3 pg (28.0-32.0); Mean Corpuscular Hgb Conc. 34.4 g/dL (32.0-36.0); Mean Corpuscular Volume 93.8 fL (80.0-100.0); Platelet Count (auto) 31 10^3/uL (140-450)
[2018-12-23 06:21] LABS: Calcium 6.3 mg/dL (8.5-10.1); Potassium 3.5 mmol/L (3.5-5.1)
[2018-12-23] MEDS: IPRATROPIUM BROM 0.5 MG/2.5ML INH SOL NEB SCH ×3 (06:31→22:13)
[2018-12-23 06:38] LABS: Basophils % (manual) 0 (0.0-2.0); Blast Cells 0; Promyelocytes % 0; Reactive Lymphocytes 0
--- NOTE | 2018-12-23 07:00 | NUR ---
REPORT REPORT GIVEN TO YANICK DIAZ
--- NOTE | 2018-12-23 07:22 | NUR ---
TALKED TO DR. ANGULO REGARDING LABS ORDER RECEIVED
[2018-12-23 08:48] LABS: Band Neutrophils % (manual) 30; Eosinophils % (manual) 1 (0-7); Lymphocytes % (manual) 4 (10.0-50.0); Metamyelocytes % 1; Monocytes % (manual) 1 (0-12); Myelocytes % 1
--- NOTE | 2018-12-23 09:01 | NUR ---
DR. ANGULO UPDATED VIA PHONE LABS/ ABG REVIEWED. NEW ORDERS IN PLACE. SEE NEW ORDERS.
--- NOTE | 2018-12-23 09:25 | NUR ---
DR. STINSON CALLED WITH ABG RESULTS AND NEW ORDER CHANGES. SEE NEW ORDERS. R.T PAGED.
[2018-12-23] MEDS: FAMOTIDINE 20 MG TAB NG SCH (10:00)
--- NOTE | 2018-12-23 10:45 | NUR ---
MD AT BEDSIDE DR. STINSON UPDATED ON PATIENTS STATUS. UPDATED DAUGHTER DUTCH AT BEDSIDE ON PATIENTS CONDITION. NEW ORDERS IN PLACE.
--- NOTE | 2018-12-23 11:00 | NUR ---
ZOSYN ON HOLD PHARMACY CALLED TO NOTIFY OF DR. STINSON'S REQUEST TO HOLD ZOSYN PATIENTS PLT NOTED TO TREND DOWN. PER MD ALL CULTURES ARE RESULTING NEGATIVE AT THIS TIME. RX NOTIFIED. MEDICATION ON HOLD UNTIL FURTHER ORDERS.
[2018-12-23] MEDS ORDERED: FAMOTIDINE (10MG/ML) 2ML VL IV ONE (11:15)
--- NOTE | 2018-12-23 11:15 | NUR ---
TITRATION PATIENT REMAINS ON SEDATION FOR COMFORT MEASURES. ONLY RESPONSE IS TO DEEP PAIN. PER REPORT PATIENT HAS BECOME TACHYCARDIC AND TACHYPNEIC WITH SEDATION VACATION. VERSED TO REMAIN OFF IF TOLERATED PATIENT IS S/P CPR. PER DR. STINSON, ATTEMPT TO DECREASE LEVOPHED FOR TACHYCARDIA AT THIS TIME. DOBUTAMINE TO REMAIN AT LOW DOSE. WILL CONTINUE TO MONITOR AND TITRATE LEVOPHED TOLERATED.
--- NOTE | 2018-12-23 11:48 | NUR ---
ORDER FOR ABG AT 1800 CANCELED UNDER WRONG PHYSICIAN LEROY NGO MD. ORDER MEANT TO CANCEL UNDER DR. ANGULO.
--- NOTE | 2018-12-23 12:00 | NUR ---
Cooling Measures applied. Patient currently has temp of 99.7 , cooling measures in place.
[2018-12-23] MEDS ORDERED: FUROSEMIDE 40 MG/4 ML VIAL IV ONE (12:15)
[2018-12-23] MEDS: NOREPINEPHRINE BITARTRATE 32 MG in D5W 5% 218 ML IV SCH (12:19)
--- NOTE | 2018-12-23 13:00 | NUR ---
LAB CALLED FOR MISC. ORDER: HIT PANEL. ORDER IN PLACE. LAB SENT.
[2018-12-23] MEDS: fentaNYL Drip 2500mCg/250mlNS 250 ML IV SCH (16:50)
--- NOTE | 2018-12-23 17:18 | NUR ---
Cooling Measures applied. Patient currently has temp of 99.7 , cooling measures in place.
--- NOTE | 2018-12-23 17:18 | NUR ---
PATIENT TOLERATING LEVOPHED TITRATION. SEE IV SPREADSHEET.
--- NOTE | 2018-12-23 17:20 | NUR ---
OG CLAMPED OG CLAMPED. TUBING APPEARS TO HAVE SPECKS OF COFFEE GROUNDS WITH CLEAR GASTRIC CONTENTS. PT HAS BEEN ON LIS WITH NO OUTPUT. OG CLAMPED AT THIS TIME. WILL CONTINUE TO MONITOR FOR ANY SIGNS OF BLEEDINGS. 1800 CBC PENDING. Addendum: 12/23/18 at 1723 by Caprice Dove RN MD TO BE NOTIFIED TO DETERMINE IF TUBE FEEDINGS IS DESIRED.
--- NOTE | 2018-12-23 17:45 | NUR ---
PATIENT NOTED TO HAVE MORE ECTOPY, WITH PVC AND PACS, PACER SPIKES NOTED. LABS SENT ORDERED.
[2018-12-23 17:51] LABS: Mean Corpuscular Hemoglobin 31.7 pg (28.0-32.0)
[2018-12-23 17:53] LABS: Hematocrit 30.7 % (41.0-53.0); Hemoglobin 10.5 g/dL (13.5-17.5); Mean Corpuscular Hgb Conc. 34.1 g/dL (32.0-36.0); Platelet Count (auto) 33 10^3/uL (140-450); Red Cell Distribution Width 14.4 % (11.8-14.3); White Blood Cell 18.5 10^3/uL (4.4-10.8)
[2018-12-23 17:57] LABS: Basophils % (manual) 0 (0.0-2.0); Blast Cells 0; Eosinophils % (manual) 0 (0-7); Metamyelocytes % 0; Myelocytes % 0; Promyelocytes % 0; Reactive Lymphocytes 0
[2018-12-23] MEDS ORDERED: PIPERACILLIN-TAZOB 2.25GM 50 ML IV SCH (18:00)
[2018-12-23 18:08] LABS: Albumin 2.7 g/dL (3.4-5.0); BUN/Creatinine Ratio 11.5; Calcium 6.5 mg/dL (8.5-10.1); Potassium 3.7 mmol/L (3.5-5.1)
[2018-12-23 18:16] LABS: Bilirubin, Total 2.6 mg/dL (0.2-1.0)
[2018-12-23 18:42] LABS: Band Neutrophils % (manual) 15; Lymphocytes % (manual) 8 (10.0-50.0); Monocytes % (manual) 4 (0-12)
--- NOTE | 2018-12-23 18:52 | NUR ---
DR. ANGULO PAGED TO NOTIFY OF 1800 LABS REQUESTED. ALSO PAGED TO NOTIFY OF BLOOD SUGARS IN 100'S ON AGGRESSIVE SLIDING SCALE. AWAITING CALLBACK. Addendum: 12/23/18 at 1906 by Caprice Dove RN NEW ORDERS OBTAINED. Mirna PAGED TO NOTIFY OF VENT CHANGES MADE.
[2018-12-23] MEDS ORDERED: DEXTROSE (50%) 50ML SYRG IV PRN (19:15)
[2018-12-23] MEDS ORDERED: Glucerna 1.2 Cal 1Liter BOTTLE GT SCH (19:15)
--- NOTE | 2018-12-23 19:20 | NUR ---
CARE ASSUMED. ASSESSMENT: SEDATED ON 110 MCG/HR OF FENTANYL. NO RESPONSE TO NOXIOUS STIMULI AT THIS TIME. PUPILS 3 SLUGGISH. INTUBATED ON ,TV 550. PEEP +8, FIO2 40%, LUNGS CLEAR, SATURATIONS 9%. ETT SUCTION - RUST COLOR, THIN SECRETIONS, SMALL AMT. CARDIAC - VENTRICULAR PACED 100%, RATE 120, WITH OCCASIONAL PVC'S. HR UP TO 130 WHEN SUCTIONED. G.I - HYPOACTIVE BOWEL SOUNDS, OGT CLAMPED AT THIS TIME. G.U - CORADO TO DD, CLEAR, YELLOW URINE. IV - LEFT IJ TRIPLE LUMEN CENTRAL LINE, #18G RAC, #20G LAC, FLUSH WELL. SKIN INTACT. WILL CONTINUE TO MONITOR.
--- NOTE | 2018-12-23 21:26 | NUR ---
TEMP 100.0, COOLING BLANKET PLACED ON PATIENT. ICE PACKS ALSO PRESENT FROM PREVIOUS SHIFT
[2018-12-23] MEDS: MIDAZOLAM DRIP 50 mg/50mL 50 ML IV SCH (21:30)
--- NOTE | 2018-12-23 21:50 | NUR ---
SATS 90%, REPOSITIONED LEFT, ETT SUCTION. SATS 92%
[2018-12-24] VITALS (106 sets, daily range): BP systolic 93–129; BP diastolic 54–71
[2018-12-24] MEDS ORDERED: PHENYLEPHRINE HCL 10 MG/ML VL ONE (02:24)
[2018-12-24] MEDS ORDERED: PHENYLEPHRINE IV 500 ML IV ONE (02:24)
[2018-12-24] MEDS: PHENYLEPHRINE INJ 80 MG in SODIUM CHL 0.9% 250 ML IV SCH ×2 (02:32→16:26)
[2018-12-24] MEDS: DOBUTamine 1000MCG/ML 250 ML IV SCH ×3 (02:44→23:36)
[2018-12-24] MEDS: VASOPRESSIN 50 UNITS in D5W 5% 247.5 ML IV SCH (04:00)
[2018-12-24 04:10] LABS: Potassium 4.3 mmol/L (3.5-5.1)
[2018-12-24 04:15] LABS: BUN/Creatinine Ratio 12.9; Calcium 6.8 mg/dL (8.5-10.1)
[2018-12-24] MEDS: ACCU-CHEK COMFORT CURVE STRIP VI SCH ×4 (05:33→16:55)
[2018-12-24] MEDS: InsuLIN REG 1unit/0.01ml Soln (100units/ml) SC SCH ×5 (05:33→17:16)
[2018-12-24 05:53] LABS: Hematocrit 32.5 % (41.0-53.0); Mean Corpuscular Hemoglobin 31.7 pg (28.0-32.0)
[2018-12-24 05:55] LABS: Basophils # (auto) 0.1 uL; Basophils % (auto) 0.3 % (0.0-2.0); Eosinophils # (auto) 0 uL; Eosinophils % (auto) 0.2 % (0.0-7.0); Lymphocytes % (auto) 5.2 % (10.0-50.0); Mean Corpuscular Hgb Conc. 33.8 g/dL (32.0-36.0); Mean Corpuscular Volume 93.8 fL (80.0-100.0); Monocytes # (auto) 0.5 uL; Monocytes % (auto) 2.7 % (0.0-12.0); Neutrophils # (auto) 18.3 uL; Neutrophils % (auto) 91.6 % (37.0-80.0); Nucleated Red Blood Cells % 0.2 %; Platelet Count (auto) 34 10^3/uL (140-450); Red Blood Cells 3.46 10^6/uL (4.5-5.90); Red Cell Distribution Width 14.8 % (11.8-14.3)
[2018-12-24] MEDS: IPRATROPIUM BROM 0.5 MG/2.5ML INH SOL NEB SCH ×3 (06:36→21:56)
[2018-12-24] MEDS: NOREPINEPHRINE BITARTRATE 32 MG in D5W 5% 218 ML IV SCH (07:07)
--- NOTE | 2018-12-24 09:26 | NUR ---
HR ADMINISTRATIVE ASSISTANT AT BEDSIDE MD UPDATED ON PATIENTS STATUS. MD REQUESTING TO SPEAK TO FAMILY RE: DIALYSIS CATHETER PLACEMENT. FAMILY TO ARRIVE SHORTLY AND DISCUSS TX WITH MD.
[2018-12-24] MEDS ORDERED: HEPARIN 1,000 UNITS/ml 1ML VIAL IV ONE ×2 (10:00)
[2018-12-24] MEDS: DexMEDEtomidine 400 MCG in D5W 5% 96 ML IV SCH ×2 (10:04→16:45)
--- NOTE | 2018-12-24 12:00 | NUR ---
BEDSIDE PROCEDURE DR. STINSON AT BEDSIDE PERFORMING BEDSIDE PROCEDURE VIA STERILE TECHNIQUE. PATIENT TOLERATED PROCEDURE WELL. CXR ORDERED FOR PLACEMENT VERIFICATION.
--- NOTE | 2018-12-24 12:08 | NUR ---
Nutrition Follow-up Notes Wt.: 81.4 kg today. Pt's intubated, sedated, no immediate family member at bedside except for RN during rounds this morning. Pt's currently NPO with EN support of Glucerna 1.2 Rex @ 30 ml/hr providing 864 kcal, 43 gms pro and 580 ml free water, tolerates feeding well, no residuals noted this morning, per nursing. Pt with inadequate EN support d/t low initiation rate delivery of concentrated formula aeb current EN infusion meets 43% to 47% of est caloric needs and 54% to 67 % of est protein needs. Noted pt's for possible dialysis tx. Estimated needs BW (80 kg)- 6858-9809 kcal (23-25 kcal/kgBW), 64-80 g protein (0.8-1.0 g/kg BW r/t elev RFT). Will continue to monitor pertinent labs and reassess nutrient need prn Labs: Gluc 111 H, Na 129 L, Cl 91 L, BUN 86 H, Cr 6.65 H, Ca 6.8 L; Tot malvin 2.6 H, AST 1281 H, ALT 1732 H, ALP 35 L, Tpro 5.0 L, Alb 2.7 L Skin: Kalen scale 10, high risk, pt's anterior medial sternum abrasion per web production designer. GI: Pt had 2x BM 12/21/18 per web production designer. PES: Increased nutrient needs r/t current/chronic medical condition aeb intubated, sedated with order of NPO Altered nutrition related lab values r/t current/chronic medical condition aeb elev RFT hyperglycemia, mod hypoalb Will continue to monitor NPO status, EN tolerance, skin status, pertinent labs and weight trend. F/u in 2 to 3 days. Rec.: 1.) If still NPO with EN support, consider gradual increase on feeding rate of Glucerna 1.2 Rex @ 60 ml/hr goal rate as tolerated when medically appropriate. 2.) If pt's on dialysis, consider change EN formula to Nephro Carb Steady @ 45 ml/hr goal rate as tolerated. 3.) Albumin continues trending down, on dialysis, consider Prostat 1 pkt BID. 4.) Advance gradually to oral diet when medically appropriate. 5.) Refer pt to CDE/RD for further nutrition education and weight monitoring upon discharge. 6.) Continue current plan of care.
--- NOTE | 2018-12-24 12:30 | NUR ---
SEDATION/LABORED BREATHING DR. STINSON AT BEDSIDE NOTIFIED PATIENT NOTED TO HAVE LABORED BREATHING. VERBALIZED UNDERSTANDING. PRECEDEX TO BE INCREASED. STATED IT CAN BE A " COMPENSATION PATIENT IS DOING". WILL CONTINUE TO MONITOR. HR HAS NOTED TO DECREASE FROM 118-125 TO 115-117. Addendum: 12/24/18 at 1818 by Caprice Dove RN ALSO NOTIFIED OF TEMP REACHING 100.6 RECTAL TEMP. NEW ORDER IN PLACE FOR ROCEPHIN IVP.
[2018-12-24] MEDS ORDERED: cefTRIAXone 1GM/50ML D5W 50 ML IV ONE (14:15)
--- NOTE | 2018-12-24 16:00 | NUR ---
DESATURATION PATIENT TURNED TO LEFT SIDE. PT NOTED TO DESATURATE TO 88%, 100% SUPPLEMENT O2 PROVIDED. PT INCREASED BACK TO 92-93%. WILL CONTINUE TO MONITOR.
--- NOTE | 2018-12-24 16:47 | NUR ---
TUBE FEEDING TOLERATED WELL. NO GASTRIC RESIDUAL. TF INCREASED TO 46ML/HR. ASPIRATION PRECAUTION IN PLACE. Addendum: 12/24/18 at 1806 by Caprice Dove RN INCREASED TO 45ML/HR.
[2018-12-24] MEDS: fentaNYL Drip 2500mCg/250mlNS 250 ML IV SCH (16:55)
--- NOTE | 2018-12-24 17:00 | NUR ---
TACHYPNEIC PATIENT NOTED TO BE TACHYPNEIC, RR 29-29, FENT GTT RESTARTED WITH PRECEDEX AT MAX DOSE. WILL INCREASE FENT FOR COMFORT. SEE IV SPREADSHEET
--- NOTE | 2018-12-24 17:21 | NUR ---
Cooling Measures applied. Patient currently has temp of 101.1 , cooling measures in place.
--- NOTE | 2018-12-24 17:27 | NUR ---
IV removal Right arm noted to be slighly more ededemous than left. IV DC'd with sterile technique, catheter fully intact. Pressure dressing applied to site. Patient tolerated procedure well. Will continue to monitor for any further s/s erythema or increase swelling.
--- NOTE | 2018-12-24 18:36 | NUR ---
MD CAVAZOS SUBSTATION WIREMAN CALLED TO NOTIFY PATIENT RR 28-29 AND TO NOTIFY OF TEMP OF 101.5 RECTALLY. NEW ORDERS IN PLACE. PRECEDEX TO BE STOPPED AND PROPOFOL TO BE STARTED AND TITRATED TOLERATED. SEE ORDERS.
[2018-12-24] MEDS: PROPOFOL 100 ML IV SCH (18:51)
--- NOTE | 2018-12-24 19:15 | NUR ---
CARE ASSUMED. ASSESSMENT: CONTINUES ON FENTANYL AT 100 MCG/HR AND DIPRIVAN AT 5 MCG/KG/MIN., PUPILS 3 SLUGGISH BILATERALLY. SCLERA EDEMA PRESENT. DOES NOT RESPOND TO NOXIOUS STIMULI. VENTILATED AC 22, TV 550, FIO2 30%, PEEP +8, SATS 94%. LUNGS CLEAR UPPER LOBES, COARSE AT BASES. ETT SUCTION - NO SECRETIONS, ORAL CARE, MINIMAL AMT. OF OLD BLOOD SECRETIONS. CARDIAC - OFF STEFANO. HR 106, DOBUTAMINE 2.5MCG/KG/MIN. ALL INFUSING THRU LEFT IJ TRIPLE LUMEN. G.I GLUCERNA AT 45CC, NO RESIDUAL. THRU OGT. CORADO TO DD WITH CLEAR, YELLOW URINE. TAMARA CATH TO RIGHT IJ IV SITE TO LAC INTACT. TEMP 98.6 RECTAL, WILL CONTINUE TO MONITOR
[2018-12-24] MEDS: MIDAZOLAM DRIP 50 mg/50mL 50 ML IV SCH (21:30)
--- NOTE | 2018-12-24 22:00 | NUR ---
SEVERAL FAMILY MEMBERS VISITING WITH PATIENT. QUESTIONS AND CONCERNS ADDRESSED.
[2018-12-25] VITALS (95 sets, daily range): BP systolic 99–166; BP diastolic 53–83
[2018-12-25] MEDS: VASOPRESSIN 50 UNITS in D5W 5% 247.5 ML IV SCH (04:00)
[2018-12-25 04:27] LABS: Hematocrit 31.8 % (41.0-53.0)
[2018-12-25 04:44] LABS: % Iron Saturation 92.2 % (20-55)
[2018-12-25] MEDS: PROPOFOL 100 ML IV SCH ×2 (05:44→17:56)
[2018-12-25] MEDS: InsuLIN REG 1unit/0.01ml Soln (100units/ml) SC SCH ×4 (05:49→17:57)
[2018-12-25] MEDS: ACCU-CHEK COMFORT CURVE STRIP VI SCH ×4 (05:49→17:57)
[2018-12-25] MEDS: IPRATROPIUM BROM 0.5 MG/2.5ML INH SOL NEB SCH ×3 (06:01→21:58)
[2018-12-25 06:47] LABS: Mean Corpuscular Hgb Conc. 35.1 g/dL (32.0-36.0)
[2018-12-25 06:50] LABS: Hematocrit 31.6 % (41.0-53.0); Hemoglobin 11.1 g/dL (13.5-17.5); Mean Corpuscular Hemoglobin 32.5 pg (28.0-32.0); Mean Corpuscular Volume 92.6 fL (80.0-100.0); Red Blood Cells 3.41 10^6/uL (4.5-5.90); Red Cell Distribution Width 14.7 % (11.8-14.3); White Blood Cell 11.2 10^3/uL (4.4-10.8)
[2018-12-25 06:57] LABS: Albumin 2.7 g/dL (3.4-5.0); BUN/Creatinine Ratio 17.2
[2018-12-25 06:58] LABS: Platelet Count (auto) 23 10^3/uL (140-450)
[2018-12-25 07:00] LABS: Basophils % (manual) 0 (0.0-2.0); Blast Cells 0; Eosinophils % (manual) 0 (0-7); Myelocytes % 0; Promyelocytes % 0; Reactive Lymphocytes 0
[2018-12-25] MEDS ORDERED: SODIUM CHL 0.9% 1000 ML BAG XX ONE (07:00)
[2018-12-25 07:06] LABS: Bilirubin, Total 2.3 mg/dL (0.2-1.0); Total Protein 5.5 g/dL (6.4-8.2)
--- NOTE | 2018-12-25 07:13 | NUR ---
CRITICAL LAB Received call from laboratory and spoke to Kimberly to report critical lab result BUN of 134.
[2018-12-25 07:14] LABS: Calcium 6.5 mg/dL (8.5-10.1); Potassium 4.5 mmol/L (3.5-5.1)
--- NOTE | 2018-12-25 07:35 | NUR ---
Paged Dr. Leavitt spoke to CJ at exchange regarding critical lab results of BUN of 134, awaiting for to call back.
--- NOTE | 2018-12-25 08:20 | NUR ---
Received phone call from Dr. Saldaña and updated on patient condition and AM ABG results given. RT Cornelio aware of new orders.
--- NOTE | 2018-12-25 08:55 | NUR ---
ACTIVITY Patient sitting on the side of the bed with breakfast tray. Addendum: 12/25/18 at 0859 by TRAV RENTERIA RN Wrong patient VOID note
--- NOTE | 2018-12-25 09:00 | NUR ---
HEMODIALYSIS Hemodialysis started at this time, will continue to monitor patient.
--- NOTE | 2018-12-25 09:20 | NUR ---
RESPIRATORY RT Cornelio at bedside and changed rate on ventilator to 20 per MD orders. Will continue to monitor patient closely.
[2018-12-25] MEDS: cefTRIAXone 1GM/50ML D5W 50 ML IV SCH (09:42)
[2018-12-25] MEDS: FAMOTIDINE (10MG/ML) 2ML VL IV SCH (10:07)
[2018-12-25] MEDS: NOREPINEPHRINE BITARTRATE 32 MG in D5W 5% 218 ML IV SCH (11:06)
--- NOTE | 2018-12-25 12:00 | NUR ---
ELIMINATION Checked and verified OG placement via air bolus, zero residuals aspirated feedings continue at 60ml/hr. Will continue to monitor residuals. Addendum: 12/25/18 at 1711 by TRAV RENTERIA RN VOIDED ELIMINATION ITS TITLE: NUTRITION
--- NOTE | 2018-12-25 12:05 | NUR ---
DIALYSIS Hemodialysis finished 1,300ml removed, patient tolerated well.
[2018-12-25 12:08] LABS: Band Neutrophils % (manual) 30; Lymphocytes % (manual) 15 (10.0-50.0); Metamyelocytes % 1; Monocytes % (manual) 5 (0-12)
--- NOTE | 2018-12-25 12:45 | NUR ---
TEMPERATURE Patients temperature increased to 99.5 turned on cooling blanket, will continue to monitor temperature.
--- NOTE | 2018-12-25 13:30 | NUR ---
TEMPERATURE Patients temperature continues to increase 99.9 cooling blanket on and ice packs placed and cool wash cloth to forehead.
--- NOTE | 2018-12-25 14:07 | NUR ---
Assessment Pt is a 68 yr old male, on a ventilator. Pt's daughter Paola and Nephew were in the room with him. Pt's Daughter Paola is her emergency contact at [phone], and answered questions on the pt's behalf. Daughter stated that on the day of admit, pt started to cough up blood and had a hard time breathing. Prior to admit, pt lives with his , daughter and nephews. Pt was independent with ADL's, and his helped with cooking and cleaning. Pt's daughter was uncertain if he'd need DME upon d/c. Pt's primary is Dr. Li. Pt's daughter was unsure of pt having an advanced directive. D/C needs will be attended to once pt is stabilized. Addendum: 12/25/18 at 1419 by RADHA MENDOZA SS Amended: Links added.
--- NOTE | 2018-12-25 14:30 | NUR ---
Called Dr. Saldaña at [phone] regarding post ABG from hemodiaylsis and chest x-ray results from this AM with new orders received this RN to input into system.
--- NOTE | 2018-12-25 15:30 | NUR ---
ELIMINATION Patient had a large brown bowel movement, damien- care provided and partial linen change done with the help of account support analyst Keven. Patient tolerated well with no incident. Will continue to monitor patient closely.
--- NOTE | 2018-12-25 15:50 | NUR ---
MD Dr. Li at bedside updated on patient condition with no new orders other than to start titrating the sedation off to wean tomorrow in AM.
--- NOTE | 2018-12-25 16:00 | NUR ---
RESPIRATORY RT Cornelio at bedside changed vent setting to AC 16, O2 sats 96%,will continue to monitor patient.
--- NOTE | 2018-12-25 17:25 | NUR ---
Called and spoke to Dr. Saldaña regarding ABG after vent changes with no new orders.
[2018-12-25] MEDS: DOBUTamine 1000MCG/ML 250 ML IV SCH ×2 (17:57→19:30)
--- NOTE | 2018-12-25 19:45 | NUR ---
ASSESSMENT: SEDATED ON PROPOFOL AND FENTANY 40 MCG/KG/MIN, INFUSING THRU LEFT J CENTRAL LINE. CONTINUES VENTED ON 30% WITH SATS 96%. LUNGS COARSE THROUGHOUT. THICK, YELLOW SECRETIONS. CARDIAC - SINUS TACH 110, NO ECTOPY. SBP 140-150'S, SINCE SEDATION DECREASED DURING DAY. ABDOMEN - LARGE, SOFT, (+) B.S. TUBE FEEDINGS CONTINUE AT 60 CC/HR, RESIDUAL 40CC. BM TODAY. CORADO - JAVIER, CLEAR URINE MARIAJOSE CARE DONE, MOISTURE RELATED FISSURE TO LEFT INNER SCROTAL AREA. TAMARA CATH INTACT TO RIJ
[2018-12-25] MEDS: MIDAZOLAM DRIP 50 mg/50mL 50 ML IV SCH (21:30)
[2018-12-26] VITALS (108 sets, daily range): BP systolic 100–171; BP diastolic 60–95
--- NOTE | 2018-12-26 | NUR ---
RESIDUAL 50CC LOOSE, BROWN STOOLS, LARGE AMT. MARIAJOSE CARE DONE, BED BATH COMPLETED.
[2018-12-26] MEDS: fentaNYL Drip 2500mCg/250mlNS 250 ML IV SCH (01:22)
--- NOTE | 2018-12-26 04:00 | NUR ---
RESIDUAL 60CC/HR. LARGE, BROWN, LIQUID STOOL, MARIAJOSE CARE PROVIDED, OINTMENT APPLIED.
[2018-12-26 04:16] LABS: Hemoglobin 11.7 g/dL (13.5-17.5)
[2018-12-26 04:21] LABS: Hematocrit 33.3 % (41.0-53.0); Mean Corpuscular Hemoglobin 32.3 pg (28.0-32.0); Mean Corpuscular Volume 92.3 fL (80.0-100.0); Red Cell Distribution Width 14.8 % (11.8-14.3); White Blood Cell 11.9 10^3/uL (4.4-10.8)
[2018-12-26 04:24] LABS: Albumin 2.6 g/dL (3.4-5.0); Calcium 6.7 mg/dL (8.5-10.1); Potassium 4.7 mmol/L (3.5-5.1)
[2018-12-26 04:33] LABS: BUN/Creatinine Ratio 18.5; Bilirubin, Total 2.9 mg/dL (0.2-1.0); Total Protein 5.4 g/dL (6.4-8.2)
[2018-12-26 04:37] LABS: Platelet Count (auto) 19 10^3/uL (140-450)
[2018-12-26 04:39] LABS: Basophils % (manual) 0 (0.0-2.0); Blast Cells 0; Promyelocytes % 0; Reactive Lymphocytes 0
[2018-12-26] MEDS: IPRATROPIUM BROM 0.5 MG/2.5ML INH SOL NEB SCH ×3 (05:36→22:48)
[2018-12-26] MEDS: InsuLIN REG 1unit/0.01ml Soln (100units/ml) SC SCH ×5 (06:00→23:56)
[2018-12-26] MEDS: ACCU-CHEK COMFORT CURVE STRIP VI SCH ×5 (06:00→23:55)
--- NOTE | 2018-12-26 06:00 | NUR ---
LARGE BOWEL MOVEMENT. LIQUID BROWN. MARIAJOSE CARE, LINEN CHANGED.
[2018-12-26] MEDS: VASOPRESSIN 50 UNITS in D5W 5% 247.5 ML IV SCH (08:02)
[2018-12-26] MEDS ORDERED: SODIUM CHL 0.9% 1000 ML BAG XX ONE (08:15)
--- NOTE | 2018-12-26 08:23 | NUR ---
SPOKE WITH DR STINSON RECEIVED NEW VENTILATOR ORDERS.
--- NOTE | 2018-12-26 08:30 | NUR ---
DR SHARMA AT BEDSIDE NEW ORDERS PLACED
[2018-12-26 08:31] LABS: Band Neutrophils % (manual) 20; Eosinophils % (manual) 1 (0-7); Lymphocytes % (manual) 12 (10.0-50.0); Metamyelocytes % 7; Monocytes % (manual) 2 (0-12); Myelocytes % 5
--- NOTE | 2018-12-26 09:00 | NUR ---
PROPOFOL SEDATION STOPPED, FENTANYL DRIP CONTINUING TO INFUSE. SEE IV SPREADSHEET
[2018-12-26] MEDS: DexMEDEtomidine 400 MCG in D5W 5% 96 ML IV SCH (09:18)
--- NOTE | 2018-12-26 09:29 | NUR ---
LENS POLISHER HAND AT BEDSIDE SETTING UP
--- NOTE | 2018-12-26 09:34 | NUR ---
PATIENTS DAUGHTER AND AT BEDSIDE UPDATED ON PLAN OF CARE, INFORMED OF DRS REQUEST FOR BLOOD PRODUCT TRANSFUSION.
--- NOTE | 2018-12-26 10:05 | NUR ---
TURNING HELD- PATIENT ON DIALYSIS SKIN INTACT AND NO BREAKDOWN NOTED DURING AM ASSESSMENT
[2018-12-26] MEDS: NOREPINEPHRINE BITARTRATE 32 MG in D5W 5% 218 ML IV SCH (11:06)
[2018-12-26] MEDS: DOBUTamine 1000MCG/ML 250 ML IV SCH ×2 (12:08→17:20)
[2018-12-26] MEDS ORDERED: HEPARIN 1,000 UNITS/ml 1ML VIAL IV ONE ×2 (12:15)
--- NOTE | 2018-12-26 13:05 | NUR ---
DIALYSIS COMPLETED- 2L REMOVED. VITALS STABLE AT COMPLETION OF DIALYSIS
[2018-12-26] MEDS: PHENYLEPHRINE INJ 80 MG in SODIUM CHL 0.9% 250 ML IV SCH (13:46)
[2018-12-26] MEDS: cefTRIAXone 1GM/50ML D5W 50 ML IV SCH (13:46)
--- NOTE | 2018-12-26 13:55 | NUR ---
PLATELET TRANSFUSION STARTED
--- NOTE | 2018-12-26 14:39 | NUR ---
Nutrition Follow-up Notes Wt.: 82.4 kg Pt's intubated, sedated, no immediate family member at bedside except for HD RN and pt undergoing HD during rounds this morning. Pt's currently NPO with EN support of Glucerna 1.2 Rex @ 60 ml/hr providing 1728 kcal, 86 gms pro and 580 ml free water, tolerates feeding well, no residuals noted this morning, per nursing. Pt with adequate EN support aeb current EN infusion meets 87-93% of est caloric needs and 76-89 % of est protein needs. RN informed of diet rec per MD approval now that pt is on HD Estimated needs BW (80 kg)-2000 -2160 kcal (25-27 kcal/kgBW), 96-112 g protein (0.8-1.0 g/kg BW r/t elev RFT). Will continue to monitor pertinent labs and reassess nutrient need prn. reassessed as pt on HD Labs: BUN 112 H, CREAT 6.04 H, ALB 2.6 L, GLU 223 H, CA 6.7 L, LAZARUS 2.9 H, MEGAN/LT 282/1202 H Skin: Kalen scale 10, high risk, pt's anterior medial sternum abrasion per ham facer. GI: Pt had 1 BM today per ham facer. PES: Increased nutrient needs r/t current/chronic medical condition aeb intubated, sedated with order of NPO Altered nutrition related lab values r/t current/chronic medical condition aeb elev RFT hyperglycemia, mod hypoalb Will continue to monitor NPO status, EN tolerance, skin status, pertinent labs and weight trend. F/u in 2 to 3 days. Rec.: 1.) Consider change EN formula to Nephro Carb Steady @ 45 ml/hr goal rate as tolerated. 3.) Albumin continues trending down, on dialysis, consider Prostat 1 pkt BID. 4.) Advance gradually to oral diet when medically appropriate. 5.) Refer pt to CDE/RD for further nutrition education and weight monitoring upon discharge. 6.) Continue current plan of care.
[2018-12-26] MEDS ORDERED: Nepro With Carb Steady 1 Liter Bottle GT SCH (14:45)
--- NOTE | 2018-12-26 17:21 | NUR ---
DR ANGULO AT BEDSIDE DISCUSSED PLAN OF CARE WITH PATIENTS DAUGHTER
[2018-12-26] MEDS: PROPOFOL 100 ML IV SCH (18:32)
--- NOTE | 2018-12-26 19:50 | NUR ---
OPEN ASSUMED CARE OF MALE PT ORALLY INTUBATED. PT ON NO SEDATION. PT GRIMACE DURING CARES (TURNING, ORAL CARE ETC) OTHERWISE NON RESPONSIVE. COUGH AND GAG PRESENT/HYPOACTIVE. PUPILS EQUAL AND REACTIVE. PT DOES NOT MOVE EXTREMITIES. PT VPACED RATE 107 ON TEST CELL TECHNICIAN WITH OCCASIONAL PVC'S OBSERVED. PT ON DOBUTAMINE GTT 2.5 MCG/KG/MIN. PT WITH OGT IN PLACE WITH GLUCERNA FEEDING AT 60 ML/HR. 20 ML TUBE FEED RESIDUAL ASPIRATED/RETURNED. L. IJ TLC IN PLACE ALL PORTS PATENT. R. IJ H.D. CATH PRESENT WITH CDI DRESSING. L. RADIAL A-LINE IN PLACE WITH GOOD WAVE FORM OBSERVED. LAZARUS SCD'S IN PLACE. PT WITH LOW GRADE TEMP 99.5 RECTAL WITH COOLING BLANKET IN USE. NO INDICATION OF PAIN OBSERVED. BED IN LOWEST LOCKED POSITION. SIDE RAILS UP X 2. HOB ELEVATED 40 DEGREES. PT IN FULL VIEW OF RN STATION WILL CONTINUE TO MONITOR.
--- NOTE | 2018-12-26 20:00 | NUR ---
GI PT HAD COPIOUS LIQUID STOOL. PT HAVING FREQUENT LIQUID STOOLS PER REPORT. PT CLEANSED. FLEXI-SEAL INSERTED TO GRAVITY WITH NO DIFFICULTY TO PREVENT SKIN BREAKDOWN.
[2018-12-26] MEDS: MIDAZOLAM DRIP 50 mg/50mL 50 ML IV SCH (21:30)
[2018-12-27] VITALS (95 sets, daily range): BP systolic 117–168; BP diastolic 60–98
[2018-12-27] MEDS: fentaNYL Drip 2500mCg/250mlNS 250 ML IV SCH ×2 (01:22→18:24)
--- NOTE | 2018-12-27 03:00 | NUR ---
Patient bathe/linen change Patient given complete bath. Skin integrity assessed for any changes. Linens changed. Patient repositioned for comfort.
[2018-12-27] MEDS: DOBUTamine 1000MCG/ML 250 ML IV SCH ×2 (03:46→10:16)
[2018-12-27] MEDS: VASOPRESSIN 50 UNITS in D5W 5% 247.5 ML IV SCH (04:00)
[2018-12-27 04:04] LABS: Hemoglobin 12.1 g/dL (13.5-17.5)
[2018-12-27 04:05] LABS: Hematocrit 34.4 % (41.0-53.0); Mean Corpuscular Hemoglobin 32.3 pg (28.0-32.0); Mean Corpuscular Hgb Conc. 35.1 g/dL (32.0-36.0); Platelet Count (auto) 23 10^3/uL (140-450); Red Blood Cells 3.74 10^6/uL (4.5-5.90); White Blood Cell 12.7 10^3/uL (4.4-10.8)
[2018-12-27 04:24] LABS: Basophils % (manual) 0 (0.0-2.0); Blast Cells 0; Eosinophils % (manual) 0 (0-7); Promyelocytes % 0; Reactive Lymphocytes 0
[2018-12-27 04:45] LABS: Calcium 7.5 mg/dL (8.5-10.1); Potassium 4.6 mmol/L (3.5-5.1)
[2018-12-27 04:47] LABS: BUN/Creatinine Ratio 21.5
[2018-12-27] MEDS: InsuLIN REG 1unit/0.01ml Soln (100units/ml) SC SCH ×3 (05:24→18:25)
[2018-12-27] MEDS: ACCU-CHEK COMFORT CURVE STRIP VI SCH ×3 (05:24→18:24)
[2018-12-27 07:00] LABS: Monocytes % (manual) 4 (0-12)
[2018-12-27 07:01] LABS: Band Neutrophils % (manual) 17; Lymphocytes % (manual) 10 (10.0-50.0); Metamyelocytes % 4; Myelocytes % 2
[2018-12-27] MEDS: IPRATROPIUM BROM 0.5 MG/2.5ML INH SOL NEB SCH ×3 (07:08→22:58)
--- NOTE | 2018-12-27 07:30 | NUR ---
OPEN Report received from Chaya HERNDON. Care initiated and initial assessment completed at this time. Patient is stable in bed in lowest position with call hairston within reach. Patients vital signs are stable at this time. Patient is intubated and on the ventilator. No sedation is on at this time. See physical assessment in chart.
[2018-12-27] MEDS: DexMEDEtomidine 400 MCG in D5W 5% 96 ML IV SCH (09:18)
--- NOTE | 2018-12-27 09:23 | NUR ---
BEDSIDE Dr. Leavitt bedside. New orders received.
[2018-12-27] MEDS ORDERED: SODIUM CHL 0.9% 1000 ML BAG XX ONE (09:45)
--- NOTE | 2018-12-27 10:00 | NUR ---
FAMILY BEDSIDE Updated on patients status.
[2018-12-27] MEDS: cefTRIAXone 1GM/50ML D5W 50 ML IV SCH (10:11)
[2018-12-27] MEDS: FAMOTIDINE (10MG/ML) 2ML VL IV SCH (10:11)
[2018-12-27 10:16] LABS: Hepatitis A Ab IgM Negative; Hepatitis B Core IgM Negative; Hepatitis B Surface Antigen Negative (Negative); Hepatitis C Antibody Negative (Negative)
--- NOTE | 2018-12-27 10:45 | NUR ---
PARTIAL LINEN CHANGE Flexi-Seal leaking slightly. Cleaned patient and applied Z-Guard. Replaced chucks and draw sheet.
[2018-12-27] MEDS: NOREPINEPHRINE BITARTRATE 32 MG in D5W 5% 218 ML IV SCH (11:06)
--- NOTE | 2018-12-27 12:58 | NUR ---
DIALYSIS STARTED Harris HERNDON started dialysis.
[2018-12-27] MEDS: PHENYLEPHRINE INJ 80 MG in SODIUM CHL 0.9% 250 ML IV SCH (13:54)
--- NOTE | 2018-12-27 16:17 | NUR ---
DIALYSIS COMPLETE Harris HERNDON completed dialysis. 2L removed. Blood pressure remained stable throughout procedure.
--- NOTE | 2018-12-27 16:40 | NUR ---
BEDSIDE Dr. Li bedside. No new orders at this time.
[2018-12-27 16:53] LABS: BUN/Creatinine Ratio 21.1
--- NOTE | 2018-12-27 17:45 | NUR ---
RESIDUAL Removed 700 ccs of blood tinged tube feedings from OG tube. Sent labs. Placed in low intermittent suction. Will notify
--- NOTE | 2018-12-27 18:00 | NUR ---
MD SALDAÑA BEDSIDE Dr. Saldaña bedside. New orders received.
[2018-12-27] MEDS: PROPOFOL 100 ML IV SCH (18:32)
[2018-12-27 18:33] LABS: White Blood Cell 18.6 10^3/uL (4.4-10.8)
[2018-12-27 18:35] LABS: Hematocrit 40.4 % (41.0-53.0); Hemoglobin 13.7 g/dL (13.5-17.5); Mean Corpuscular Hemoglobin 31.3 pg (28.0-32.0); Mean Corpuscular Hgb Conc. 33.8 g/dL (32.0-36.0); Mean Corpuscular Volume 92.7 fL (80.0-100.0); Platelet Count (auto) 35 10^3/uL (140-450); Red Blood Cells 4.36 10^6/uL (4.5-5.90); Red Cell Distribution Width 14.6 % (11.8-14.3)
[2018-12-27 18:49] LABS: Basophils % (manual) 0 (0.0-2.0); Blast Cells 0; Eosinophils % (manual) 0 (0-7); Promyelocytes % 0; Reactive Lymphocytes 0
--- NOTE | 2018-12-27 19:21 | NUR ---
CLOSING Report given to Chen HERNDON.
--- NOTE | 2018-12-27 19:30 | NUR ---
Opening Shift Note Received pt on mechanical ventilator on fentanyl gtt at 50 mcg. Pt breathing over ventilator, will titrate up on fentanyl gtt as pt tolerates. Pt grimaces to oral care and stimulation, but does not respond appropriately. Hypoactive cough/gag. Small amount of thin cano secretions suctioned out of ET tube. Full assessment done see interventions. OGT in place to LIS draining dark brown/reddish fluid. GI consult pending at this time. Left radial A-line in place, zeroed and good wave form seen. Left IJ tlc in place, all ports patent. R IJ HD catheter present with dressing CDI. B/L scds in place. Corona catheter in place draining light noam urine to gravity, secured below bladder and free of kinks. All alarms on and audible, bed locked and in lowest position. No indication of pain noted. Pt turned and skin assessment complete. Will continue to monitor closely, pt in full view of RN.
[2018-12-27 20:21] LABS: Metamyelocytes % 1
[2018-12-27 20:26] LABS: Band Neutrophils % (manual) 5
[2018-12-27 20:27] LABS: Lymphocytes % (manual) 7 (10.0-50.0); Monocytes % (manual) 5 (0-12); Myelocytes % 1
--- NOTE | 2018-12-27 22:00 | NUR ---
TEMPERATURE PT'S TEMP AT 100.3. COOLING MEASURES INITIATED.
[2018-12-28] VITALS (104 sets, daily range): BP systolic 56–166; BP diastolic 37–93
--- NOTE | 2018-12-28 | NUR ---
TEMP REASSESS TEMP AT 99.8 AND TRENDING DOWN.
[2018-12-28] MEDS: InsuLIN REG 1unit/0.01ml Soln (100units/ml) SC SCH ×5 (00:10→23:58)
[2018-12-28] MEDS: ACCU-CHEK COMFORT CURVE STRIP VI SCH ×5 (00:10→23:58)
--- NOTE | 2018-12-28 04:00 | NUR ---
LINEN CHANGE PERFORMED AND CENTRAL LINE DRESSING CHANGE PT TOLERATED WELL. SKIN INTEGRITY ASSESSED FOR ANY CHANGES. OPTIFOAM TO SACRUM FOR PREVENTATIVE MEASURES.
[2018-12-28 04:58] LABS: BUN/Creatinine Ratio 23.7; Calcium 7.5 mg/dL (8.5-10.1); Potassium 4.6 mmol/L (3.5-5.1)
[2018-12-28] MEDS: IPRATROPIUM BROM 0.5 MG/2.5ML INH SOL NEB SCH ×2 (07:09→22:09)
--- NOTE | 2018-12-28 07:30 | NUR ---
OPEN Report received from Chen HERNDON. Care initiated. Initial assessment complete.
[2018-12-28] MEDS: DexMEDEtomidine 400 MCG in D5W 5% 96 ML IV SCH (09:18)
[2018-12-28] MEDS: cefTRIAXone 1GM/50ML D5W 50 ML IV SCH (09:57)
[2018-12-28] MEDS: NOREPINEPHRINE BITARTRATE 32 MG in D5W 5% 218 ML IV SCH ×2 (09:58→18:09)
--- NOTE | 2018-12-28 10:00 | NUR ---
FAMILY BEDSIDE Patients daughter, Paola, and son, Mars, are at the patients bedside. Updated on patients status and plan of care. All questions addressed at this time.
[2018-12-28] MEDS ORDERED: BUMETANIDE 1mg/4ml VIAL (0.25mg/ml) IV ONE (10:15)
--- NOTE | 2018-12-28 10:18 | NUR ---
NUTRITION BEDSIDE Viola bedside.
[2018-12-28] MEDS: DOBUTamine 1000MCG/ML 250 ML IV SCH (11:04)
[2018-12-28] MEDS ORDERED: SODIUM CHL 0.9% 1000 ML BAG XX ONE (11:30)
--- NOTE | 2018-12-28 12:09 | NUR ---
FAMILY BEDSIDE Patients daughter in law, Mariel, is at the bedside. All questions and concerns addressed at this time. Updated on plan of care.
--- NOTE | 2018-12-28 12:10 | NUR ---
COOLING MEASURES Cooling blanket and fan are running due to elevated temperature.
--- NOTE | 2018-12-28 13:03 | NUR ---
Nutrition Follow-up Notes Wt.: 82.0 kg today. Pt's intubated, sedated, had dialysis yesterday, currently NPO with EN support temporarily held d/t high bloody residuals, per nursing. Noted pt's previously on Nephro Rex @ 60 ml/hr providing 2592 kcal, 117 gms pro and 1047 ml free water. Noted pt's for active GI consult. Estimated needs BW (80 kg)-2000 -2160 kcal (25-27 kcal/kgBW), 96-112 g protein (0.8-1.0 g/kg BW r/t elev RFT). Will continue to monitor pertinent labs and reassess nutrient need prn. reassessed as pt on HD Labs: Gluc 232 H, Cl 97 L, BUN 110 H, Cr 4.65 H, Ca 7.5 L; Tot malvin 2.9 H, AST/ALT 282/1202 H, Tpro 5.4 L, Alb 2.6 L Skin: Kalen scale 12, high risk, pt's anterior medial sternum abrasion per band sawyer. GI: Pt had 2x BM yesterday per band sawyer. PES: Increased nutrient needs r/t current/chronic medical condition aeb intubated, sedated with order of NPO Altered nutrition related lab values r/t current/chronic medical condition aeb elev RFT hyperglycemia, mod hypoalb Will continue to monitor NPO status, skin status, pertinent labs and weight trend. F/u in 2 to 3 days. Rec.: 1.) If still NPO, consider to resume EN support at lower rate and gradually increase feeding rate of Nephro Carb Steady to 45 ml/hr goal rate as tolerated when medically appropriate. 2.) Albumin continues trending down, on dialysis, consider Prostat 1 pkt BID. 3.) Advance gradually to oral diet when medically appropriate. 4.) Refer pt to CDE/RD for further nutrition education and weight monitoring upon discharge. 5.) Continue current plan of care.
[2018-12-28] MEDS: fentaNYL Drip 2500mCg/250mlNS 250 ML IV SCH (13:53)
[2018-12-28] MEDS: PHENYLEPHRINE INJ 80 MG in SODIUM CHL 0.9% 250 ML IV SCH (13:54)
[2018-12-28] MEDS: PANTOPRAZOLE 40 MG/10 ML VIAL INJ IV SCH ×2 (13:54→23:51)
--- NOTE | 2018-12-28 14:16 | NUR ---
Respiratory note: DECREASED FIO2 TO 40%. PATIENT SPO2 > 92%.
--- NOTE | 2018-12-28 15:40 | NUR ---
WOUND CARE NOTE: Weekly reevaluation by wound care team. Patient is on skin integrity rounding due to low Kalen and intubation. Patient remains intubated. Last Kalen score is 10. Patient is currently receiving dialysis treatment. Discussed with bedside RN, Maranda. Patient with no new open wounds. Nursing to continue with current skin/wound care orders. Wound care team to continue to follow while intubated and Kalen <18.
--- NOTE | 2018-12-28 15:45 | NUR ---
DIALYSIS STARTED Dialysis started.
--- NOTE | 2018-12-28 16:30 | NUR ---
BEDSIDE Dr. Li bedside. New orders received.
--- NOTE | 2018-12-28 16:45 | NUR ---
DIALYSIS FOLLOW UP Patient tolerating dialysis, no distress noted, vital signs stable.
[2018-12-28] MEDS ORDERED: ALBUMIN 25% 100 ML IV ONE ×2 (17:50→18:00)
[2018-12-28] MEDS ORDERED: NOREPINEPHRINE 8 MG/250ML KIT 250 ML IV ONE (17:56)
--- NOTE | 2018-12-28 18:05 | NUR ---
DIALYSIS UPDATE Patients blood pressure decreasing. Started medication as ordered. See IV spreadsheet.
[2018-12-28 18:07] LABS: Potassium 4.7 mmol/L (3.5-5.1)
[2018-12-28 18:08] LABS: Calcium 7.5 mg/dL (8.5-10.1)
--- NOTE | 2018-12-28 18:15 | NUR ---
DIALYSIS DISCONTINUED Dialysis stopped early. Total of zero fluid taken off of patient due to tolerance. Patients blood pressure unable to maintain.
[2018-12-28] MEDS: PROPOFOL 100 ML IV SCH (18:32)
[2018-12-28 19:16] LABS: BUN/Creatinine Ratio 21.8; Calcium 7.4 mg/dL (8.5-10.1)
--- NOTE | 2018-12-28 19:30 | NUR ---
Opening Shift Note Received pt on mechanical ventilator on fentanyl gtt at 120 mcg. Pt does not respond to any stimulation, left pupil 5 and right pupil 6 with no reaction to light. Dr. Thomas aware. Head CT pending, pt too unstable at this time to take to CT due to titrating up on levophed gtt. Dr. Thomas agrees and states to take pt when more stable. No cough/gag. Pt does breathe over ventilator. Small amount of thin cano secretions suctioned out of ET tube. Full assessment done see interventions. OGT in place to LIS draining dark brown/reddish fluid. Left radial A-line in place, zeroed and good wave form seen. Left IJ tlc in place, all ports patent. R IJ HD catheter present with dressing CDI. B/L scds in place. Corona catheter in place draining light noam urine to gravity, secured below bladder and free of kinks. All alarms on and audible, bed locked and in lowest position. No indication of pain noted. Pt turned and skin assessment complete. Will continue to monitor closely, pt in full view of RN.
--- NOTE | 2018-12-28 19:40 | NUR ---
DR. MEJIA SEES AND EXAMINES PT AT BEDSIDE.
--- NOTE | 2018-12-28 19:45 | NUR ---
TEMPERATURE TEMP 95.9, WARMING MEASURES INITIATED.
[2018-12-28] MEDS ORDERED: EPOETIN ALFA 10,000 UNIT/1 ML VIAL SC ONE (21:00)
[2018-12-28 21:24] LABS: Hemoglobin 11.5 g/dL (13.5-17.5)
[2018-12-28 21:26] LABS: Mean Corpuscular Hemoglobin 32.7 pg (28.0-32.0); Mean Corpuscular Hgb Conc. 34.7 g/dL (32.0-36.0); Mean Corpuscular Volume 94.2 fL (80.0-100.0); Platelet Count (auto) 34 10^3/uL (140-450); Red Cell Distribution Width 14.9 % (11.8-14.3); White Blood Cell 17.9 10^3/uL (4.4-10.8)
[2018-12-28 21:28] LABS: Basophils % (manual) 0 (0.0-2.0); Blast Cells 0; Metamyelocytes % 0; Myelocytes % 0; Promyelocytes % 0; Reactive Lymphocytes 0
[2018-12-28 22:50] LABS: Band Neutrophils % (manual) 1; Eosinophils % (manual) 2 (0-7); Lymphocytes % (manual) 5 (10.0-50.0); Monocytes % (manual) 2 (0-12)
--- NOTE | 2018-12-28 23:00 | NUR ---
TEMP REASSESS TEMP 99.0 AT THIS TIME. WILL CONTINUE TO MONITOR
[2018-12-29] VITALS (105 sets, daily range): BP systolic 50–156; BP diastolic 34–80
[2018-12-29 03:44] LABS: White Blood Cell 17.8 10^3/uL (4.4-10.8)
[2018-12-29 03:46] LABS: Hemoglobin 11.2 g/dL (13.5-17.5); Mean Corpuscular Hemoglobin 32.8 pg (28.0-32.0); Mean Corpuscular Hgb Conc. 35.1 g/dL (32.0-36.0); Mean Corpuscular Volume 93.7 fL (80.0-100.0); Platelet Count (auto) 41 10^3/uL (140-450); Red Blood Cells 3.42 10^6/uL (4.5-5.90); Red Cell Distribution Width 14.9 % (11.8-14.3)
[2018-12-29 03:56] LABS: Basophils % (manual) 0 (0.0-2.0); Blast Cells 0; Metamyelocytes % 0; Myelocytes % 0; Promyelocytes % 0; Reactive Lymphocytes 0
--- NOTE | 2018-12-29 04:00 | NUR ---
Patient bathe/linen change Patient given complete bath. Skin integrity assessed for any changes. Linens changed. Patient repositioned for comfort.
[2018-12-29 04:03] LABS: BUN/Creatinine Ratio 22.6; Calcium 7.1 mg/dL (8.5-10.1); Potassium 4.5 mmol/L (3.5-5.1)
[2018-12-29 04:30] LABS: Band Neutrophils % (manual) 1; Eosinophils % (manual) 4 (0-7); Lymphocytes % (manual) 2 (10.0-50.0); Monocytes % (manual) 3 (0-12)
[2018-12-29] MEDS ORDERED: NOREPINEPHRINE 8 MG/250ML KIT 250 ML IV ONE ×4 (04:32→17:28)
[2018-12-29] MEDS ORDERED: NOREPINEPHRINE BITARTRATE 4 ML IV ONE (04:39)
--- NOTE | 2018-12-29 05:30 | NUR ---
RESPIRATORY PT DESATURATED TO 85%, RT AT BEDSIDE AND INCREASED FIO2 TO 100% AT THIS TIME.
[2018-12-29] MEDS: InsuLIN REG 1unit/0.01ml Soln (100units/ml) SC SCH ×4 (05:59→23:58)
[2018-12-29] MEDS: ACCU-CHEK COMFORT CURVE STRIP VI SCH ×4 (05:59→23:47)
[2018-12-29] MEDS: IPRATROPIUM BROM 0.5 MG/2.5ML INH SOL NEB SCH ×3 (06:16→22:42)
--- NOTE | 2018-12-29 06:24 | NUR ---
Respiratory note: RECEIVED PATIENT ON V11 ESPRIT VENT ORALLY INTUBATED WITH AN 8.0 ETT SECURED VIA MOOKIE AT THE 22CM MARKING AT THE LIP, AND MECHANICALLY VENTILATED WITH THE CHARTED SETTINGS. SPO2 98%, LUNG SOUNDS DIM T/O, NO SECRETIONS WHEN SUCTIONED. SKIN IS WARM/DRY TO THE TOUCH AND IS INTACT NEAR MOOKIE SITE. THERE IS AN OGT IN PLACE AND SECURED TO THE ETT, A TAMARA CATHETER IS PALCED IN THE RIGHT NECK, A TRIPLE LUMEN CENTRAL LNIE IS PLACED IN THE LEFT IJ, AND A LEFT RADIAL ARTERIAL LINE IS IN PALCE AND PATENT. ARMS HAVE SEVERE PITTING EDEMA, BILATERAL LEGS HAVE MODERATE PITTING EDEMA AND SEQUENTIAL STOCKINGS ARE IN PLACE. RECTAL TUBE PLACED AND DRAINING. NO NEW CXR TO ASSESS. PATIENT IS UNRESPONSIVE TO ALL STIMULI AND IS SEDATED ON A FENTANYL DRIP, HE IS RESTING COMFORTABLY AND TOLERATING VENT WELL, NO CHANGES MADE. VENT PLUGGED INTO RED OUTLET AND ALL ALARMS ARE SET AND AUDIBLE. WILL CONTINUE TO ASSESS PATIENT WELL VENTILATOR FUNCTION. [employer] RUN INLINE.
[2018-12-29] MEDS: DOBUTamine 1000MCG/ML 250 ML IV SCH ×3 (06:50→17:33)
[2018-12-29] MEDS ORDERED: SODIUM CHL 0.9% 1000 ML BAG XX ONE (07:00)
--- NOTE | 2018-12-29 07:14 | NUR ---
REPORT GIVEN TO YANICK MARIN TO ASSUME CARE
--- NOTE | 2018-12-29 07:45 | NUR ---
OPEN Report received from Chen HERNDON. Care initiated and initial assessment completed.
--- NOTE | 2018-12-29 09:00 | NUR ---
DIALYSIS NURSE BEDSIDE Dialysis nurse is bedside setting up.
--- NOTE | 2018-12-29 09:05 | NUR ---
FAMILY BEDSIDE Patients son, Mars, is bedside asking about need for dialysis. Family is considering ending dialysis treatments.
--- NOTE | 2018-12-29 09:10 | NUR ---
FAMILY BEDSIDE Son, Mars, states to continue dialysis at this time, and wishes to speak to doctor.
--- NOTE | 2018-12-29 09:10 | NUR ---
MACY PURCELL Paged Dr. Garsia in regards to patients condition and dialysis.
[2018-12-29] MEDS: DexMEDEtomidine 400 MCG in D5W 5% 96 ML IV SCH (09:18)
--- NOTE | 2018-12-29 09:20 | NUR ---
BEDSIDE Dr. Garsia bedside assessing patient and status. New orders received.
[2018-12-29] MEDS ORDERED: ALBUMIN 25% 100 ML IV PRN (09:30)
--- NOTE | 2018-12-29 09:35 | NUR ---
DIALYSIS STARTED Dialysis started.
[2018-12-29] MEDS: cefTRIAXone 1GM/50ML D5W 50 ML IV SCH (09:41)
--- NOTE | 2018-12-29 09:55 | NUR ---
DIALYSIS UPDATE Patient blood pressure not tolerating at this time. New orders received from Dr. Garsia.
[2018-12-29] MEDS: BUMETANIDE 2.5mg/10ml (0.25 mg/ml) INJ IV SCH (10:00)
[2018-12-29] MEDS: VASOPRESSIN 50 UNITS in D5W 5% 247.5 ML IV SCH (10:00)
[2018-12-29] MEDS: PANTOPRAZOLE 40 MG/10 ML VIAL INJ IV SCH ×2 (10:00→22:25)
--- NOTE | 2018-12-29 10:00 | NUR ---
BEDSIDE Dr. Li bedside. No new orders received.
--- NOTE | 2018-12-29 10:30 | NUR ---
DIALYSIS UPDATE Patients blood pressure not tolerating. New orders received. Dialysis nurse no longer removing fluids only cleaning.
--- NOTE | 2018-12-29 12:00 | NUR ---
FAMILY BEDSIDE Daughter, Paola, updated on patients condition.
[2018-12-29 12:04] LABS: Creatinine, Urine 67 mg/dL (30.0-125.0); Sodium Urine 18 mmol/L (40-220)
--- NOTE | 2018-12-29 12:44 | NUR ---
Respiratory note: PAGED TO ROOM FOR DESAT INTO 80'S. ON ARRIVAL RN ZELDA HAD TAKEN PATIENT OFF VENT AND WAS BAGGING VIA AMBU-BAG WITH 100% FIO2 AND SPO2 WAS 82%. I TOOK OVER BAGGING AND CONTINUED FOR APPROX 5MIN BEFORE SPO2 STABILIZED AT 95%. PATIENT WAS PLACED BACK ON VENT, WITH FIO2 INCREASED TO 100%, WITH ALL PREVIOUSLY ORDERED SETTINGS. AFTER APPROX 1MIN PATIENT AGAIN HAD DESAT INTO THE LOW 80'S. HE WAS ONCE AGAIN TAKEN OFF VENT AND BAGGED VIA AMBU-BAG ON 100% FIO2 FOR APPROX 4MIIN. SPO2 INCREASED AND STABILIZED AT 96%; HE WAS PLACED BACK ON VENT WITH ALL PREVIOUSLY ORDERED SETTINGS.
--- NOTE | 2018-12-29 12:45 | NUR ---
PATIENT DESATURATED Two episodes of patient desaturating. Bagged while awaiting RT. Patient recovered and vent changes were made. Will inform .
[2018-12-29] MEDS: PHENYLEPHRINE INJ 80 MG in SODIUM CHL 0.9% 250 ML IV SCH (13:54)
--- NOTE | 2018-12-29 14:00 | NUR ---
SPOKE TO MD Dr. Saldaña updated on patients condition.
[2018-12-29] MEDS: NOREPINEPHRINE 8 MG/250ML KIT 250 ML IV SCH (17:41)
--- NOTE | 2018-12-29 18:00 | NUR ---
FAMILY BEDSIDE Daughter, Paola, updated on patients condition.
--- NOTE | 2018-12-29 19:02 | NUR ---
RT NOTE RECEIVED PT INTUBATED AND ON VENT V11 ON STATED SETTINGS. VENT IS PLUGGED TO RED OUTLET. ALARMS ARE ON AND AUDIBLE AT NURSES STATION. AMBU BAG AT BEDSIDE AND CONNECTED TO O2 SOURCE. 8.0 ETT IS SECURED AT 22 TO THE LOCKE CENTER WITH ANCHORFAST. BILATERAL BS ARE DIMINISHED/COARSE. PT WAS SUCTIONED FOR SMALL RETURN WITH BS DIMINISHED POST SUCTION. PT IS ON HEATED CIRCUIT WITH CIRCUIT TEMP AT 36.0. LEFT RADIAL ARTERIAL LINE NOTED. CONT ORDERED. PT TEMP 98.1, POX 97% Addendum: 12/29/18 at 2031 by Lena Atkinson RT Amended: Links added.
--- NOTE | 2018-12-29 20:04 | NUR ---
RT NOTE ROUTINE VENT CHECK. PT INTUBATED AND ON VENT V11 ON STATED SETTINGS. VENT IS PLUGGED TO RED OUTLET. ALARMS ARE ON AND AUDIBLE AT NURSES STATION. AMBU BAG AT BEDSIDE AND CONNECTED TO O2 SOURCE. 8.0 ETT IS SECURED AT 22 TO THE ORAL CENTER WITH ANCHORFAST. BILATERAL BS ARE DIMINISHED. PT IS ON HEATED CIRCUIT WITH CIRCUIT TEMP AT 35.8. LEFT RADIAL ARTERIAL LINE NOTED. CONT ORDERED. PT TEMP 98.2, POX 96% Addendum: 12/29/18 at 2034 by Lena Atkinson RT Amended: Links added.
--- NOTE | 2018-12-29 20:15 | NUR ---
ELIMINATION MODERATELY SIZED BM AROUND THE FLEXI SEAL, DARK TARRY STOOL PATIENT GIVEN MARIAJOSE CARE
--- NOTE | 2018-12-29 20:30 | NUR ---
Patient bathe/linen change/OPTI-FOAM Patient given complete bath. Skin integrity assessed for any changes. Linens changed. Patient repositioned for comfort. Gown changed, opti foam to sacrum, flexi seal adjusted. patient tolerated well
[2018-12-29 20:53] LABS: BUN/Creatinine Ratio 18.2; Potassium 5.1 mmol/L (3.5-5.1)
--- NOTE | 2018-12-29 22:49 | NUR ---
RT NOTE ROUTINE VENT CHECK. PT INTUBATED AND ON VENT V11 ON STATED SETTINGS. VENT IS PLUGGED TO RED OUTLET. ALARMS ARE ON AND AUDIBLE AT NURSES STATION. AMBU BAG AT BEDSIDE AND CONNECTED TO O2 SOURCE. 8.0 ETT IS SECURED AT 22 TO THE ORAL CENTER WITH ANCHORFAST. BILATERAL BS ARE DIMINISHED. PT WAS SUCTIONED FOR SCANT RETURN. PT IS ON HEATED CIRCUIT WITH CIRCUIT TEMP AT 36.1, WATER LEVEL IS ADEQUATE. LEFT RADIAL ARTERIAL LINE NOTED. HHN GIVEN INLINE WITH 0.5 MG ATROVENT WITHOUT INCIDENT.FIO2 TITRATED TO 80%, YANICK VALVERDE NOTIFIED. CONT ORDERED. PT TEMP 98.4, POX 99% Addendum: 12/29/18 at 2251 by Lena Atkinson RT Amended: Links added.
[2018-12-30] VITALS (103 sets, daily range): BP systolic 56–116; BP diastolic 31–93
--- NOTE | 2018-12-30 00:23 | NUR ---
RT NOTE ROUTINE VENT CHECK. PT INTUBATED AND ON VENT V11 ON STATED SETTINGS. VENT IS PLUGGED TO RED OUTLET. ALARMS ARE ON AND AUDIBLE AT NURSES STATION. AMBU BAG AT BEDSIDE AND CONNECTED TO O2 SOURCE. 8.0 ETT IS SECURED AT 22 TO THE ORAL CENTER WITH ANCHORFAST. BILATERAL BS ARE DIMINISHED. PT WAS SUCTIONED FOR SCANT RETURN. PT IS ON HEATED CIRCUIT WITH CIRCUIT TEMP AT 36.0, WATER LEVEL IS ADEQUATE. LEFT RADIAL ARTERIAL LINE NOTED. CONT ORDERED. PT TEMP 98.4, POX 99% Addendum: 12/30/18 at 0121 by Lena Atkinson RT Amended: Links added.
[2018-12-30] MEDS: NOREPINEPHRINE 8 MG/250ML KIT 250 ML IV SCH ×5 (01:20→23:00)
[2018-12-30] MEDS: fentaNYL Drip 2500mCg/250mlNS 250 ML IV SCH (01:22)
--- NOTE | 2018-12-30 02:16 | NUR ---
RT NOTE ROUTINE VENT CHECK. PT INTUBATED AND ON VENT V11 ON STATED SETTINGS. VENT IS PLUGGED TO RED OUTLET. ALARMS ARE ON AND AUDIBLE AT NURSES STATION. AMBU BAG AT BEDSIDE AND CONNECTED TO O2 SOURCE. 8.0 ETT IS SECURED AT 22 TO THE ORAL LEFT WITH ANCHORFAST. PT WAS SUCTIONED FOR SCANT RETURN. PT IS ON HEATED CIRCUIT WITH CIRCUIT TEMP AT 36.0, WATER LEVEL IS ADEQUATE. LEFT RADIAL ARTERIAL LINE NOTED.INLINE SUCTION CHANGED WITHOUT INCIDENT. FIO2 TITRATED TO 75%, YANICK VALVERDE NOTIFIED. CONT ORDERED. PT TEMP 98.4, POX 99% Addendum: 12/30/18 at 0259 by Lena Atkinson RT Amended: Links added.
--- NOTE | 2018-12-30 04:06 | NUR ---
RT NOTE ROUTINE VENT CHECK. PT INTUBATED AND ON VENT V11 ON STATED SETTINGS. VENT IS PLUGGED TO RED OUTLET. ALARMS ARE ON AND AUDIBLE AT NURSES STATION. AMBU BAG AT BEDSIDE AND CONNECTED TO O2 SOURCE. 8.0 ETT IS SECURED AT 22 TO THE ORAL LEFT WITH ANCHORFAST. PT IS ON HEATED CIRCUIT WITH CIRCUIT TEMP AT 36.0, WATER LEVEL IS ADEQUATE. LEFT RADIAL ARTERIAL LINE NOTED. FIO2 TITRATED TO 65%, YANICK VALVERDE NOTIFIED. CONT ORDERED. PT TEMP 98.4, POX 97% Addendum: 12/30/18 at 0420 by Lena Atkinson RT Amended: Links added.
[2018-12-30 05:08] LABS: Basophils # (auto) 0.1 uL; Basophils % (auto) 0.3 % (0.0-2.0); Eosinophils # (auto) 0.9 uL; Eosinophils % (auto) 4.6 % (0.0-7.0); Hematocrit 27.1 % (41.0-53.0); Hemoglobin 9.2 g/dL (13.5-17.5); Lymphocytes # (auto) 1.1 uL; Lymphocytes % (auto) 5.6 % (10.0-50.0); Mean Corpuscular Hemoglobin 32.8 pg (28.0-32.0); Mean Corpuscular Hgb Conc. 33.9 g/dL (32.0-36.0); Mean Corpuscular Volume 96.9 fL (80.0-100.0); Monocytes # (auto) 0.4 uL; Monocytes % (auto) 2.3 % (0.0-12.0); Neutrophils # (auto) 16.8 uL; Neutrophils % (auto) 87.2 % (37.0-80.0); Platelet Count (auto) 42 10^3/uL (140-450); Red Blood Cells 2.79 10^6/uL (4.5-5.90); Red Cell Distribution Width 15.8 % (11.8-14.3); White Blood Cell 19.2 10^3/uL (4.4-10.8)
[2018-12-30 05:26] LABS: BUN/Creatinine Ratio 18.5; Potassium 4.8 mmol/L (3.5-5.1)
[2018-12-30] MEDS: ACCU-CHEK COMFORT CURVE STRIP VI SCH ×3 (05:46→18:20)
[2018-12-30] MEDS: InsuLIN REG 1unit/0.01ml Soln (100units/ml) SC SCH ×3 (05:55→18:20)
[2018-12-30] MEDS: DOBUTamine 1000MCG/ML 250 ML IV SCH ×3 (05:58→22:36)
[2018-12-30] MEDS: IPRATROPIUM BROM 0.5 MG/2.5ML INH SOL NEB SCH ×3 (06:40→22:01)
--- NOTE | 2018-12-30 06:48 | NUR ---
ASSUMED CARE OF PATIENT PATIENT APPEARS TO BE RESTING IN BED COMFORTABLY IN SEMI-FOWLERS POSITION, PATIENT IS INTUBATED HOWEVER; NO SEDATION DRIPS AT THIS TIME. SEE IV SPREADSHEET FOR MEDICATIONS AND TITRATION. NO FACIAL GRIMACE NOTED. NO MOVEMENT WITH STIMULATION. NOTED CORADO CATHETER IN TACT AND DRAINING TO GRAVITY. TRIPLE LUMEN CATHETER INTACT WITH NO S/S OF PHLEBITIS OR INFILTRATION. VENTILATOR PLUGGED INTO RED OUTLET PER VAP PROTOCOL. AMBU BAG AT BEDSIDE. BED IN LOWEST LOCKED POSITION, SIDE RAILS UP TIMES TWO, PATIENT IS IN FULL VIEW OF NURSES STATION. SAFETY MAINTAINED, WILL CONTINUE TO MONITOR.
--- NOTE | 2018-12-30 07:25 | NUR ---
REPORT Report received from Veronica HERNDON, care assumed. Patient is intubated on ventilator, tolerating well at this time. No sedation in use at this time. Physical assessment performed. Afebrile. Pupils fixed and dilated. No cough or gag present at this time. Pulses palpable bilaterally. Sinus rhythm to low sinus tachycardia noted on bedside monitor. Left radial arterial line present, calibrated and zero'd. Blood pressures are labile 80-90's systolic. Levophed and Dopamine gtt present. Corona catheter patent, secure, and hung below bladder. Flexiseal intact and patent. See skin/wound assessment. See IV spreadsheet for IV/gtt rates. Bed locked in lowest position, alarms in place. Will continue to monitor.
[2018-12-30] MEDS: DexMEDEtomidine 400 MCG in D5W 5% 96 ML IV SCH (08:37)
[2018-12-30] MEDS: cefTRIAXone 1GM/50ML D5W 50 ML IV SCH (08:37)
--- NOTE | 2018-12-30 08:55 | NUR ---
ELIMINATION Patient had moderate amount of brown, green mucous like stool that leaked around flexiseal. Flexiseal irrigated. Damien care performed, skin intact. New damien pad placed, patient repositioned on side. Blood pressure labile, Levophed gtt increased. Will continue to monitor.
--- NOTE | 2018-12-30 09:02 | NUR ---
ASSISTANT PRODUCTION EDITOR AT BEDSIDE
--- NOTE | 2018-12-30 09:45 | NUR ---
EEG COMPLETED AT BEDSIDE. YANICK DISLA.
[2018-12-30] MEDS: VASOPRESSIN 50 UNITS in D5W 5% 247.5 ML IV SCH (10:00)
--- NOTE | 2018-12-30 10:25 | NUR ---
MD VISIT rounding on patient. MD aware of gtts, labs, and imaging. New orders placed.
[2018-12-30] MEDS: PANTOPRAZOLE 40 MG/10 ML VIAL INJ IV SCH ×2 (10:26→21:11)
[2018-12-30] MEDS: BUMETANIDE 2.5mg/10ml (0.25 mg/ml) INJ IV SCH (10:26)
--- NOTE | 2018-12-30 10:30 | NUR ---
Family updated on pt status Family of RYLEE REINA updated on patient's status and condition. All questions and concerns addressed. Paola (daughter) Viki (son in law) verbalized understanding.
--- NOTE | 2018-12-30 12:25 | NUR ---
MD VISIT at bedside. Updated on patient status and pending test. No new orders received at this time. Will continue to monitor.
[2018-12-30] MEDS: PHENYLEPHRINE INJ 80 MG in SODIUM CHL 0.9% 250 ML IV SCH (13:03)
--- NOTE | 2018-12-30 13:04 | NUR ---
RT PAGED Patients oxygen saturation maintaining 87%. No distress noted. RT paged to bedside.
--- NOTE | 2018-12-30 13:05 | NUR ---
PHENYLEPHRINE Neosynephrine gtt started due to patient blood pressure systolic maintaining 80's despite other vasopressor therapy in use. Will continue to monitor and reassess.
[2018-12-30 13:39] LABS: BUN/Creatinine Ratio 16.4; Potassium 4.7 mmol/L (3.5-5.1)
--- NOTE | 2018-12-30 14:47 | NUR ---
MD VISIT at bedside speaking with family regarding plan of care. MD answering all questions and concerns. MD aware that patient has been too unstable for transportation to Head CT.
--- NOTE | 2018-12-30 15:07 | NUR ---
ELIMINATION Patient had small amount of green mucous like stool that leaked around flexiseal. Flexiseal irrigated. Damien care performed, skin intact. New damien pad placed, patient repositioned on side. Blood pressure labile, oxygen saturation decreases when patient is laying flat. Will continue to monitor.
--- NOTE | 2018-12-30 15:40 | NUR ---
FAMILY MEETING spoke with patient daughter privately regarding EEG results, prognosis, and plan of care.
--- NOTE | 2018-12-30 15:56 | NUR ---
ECTOPY Patient had small run of sinus tachycardia 142 bpm for 2 seconds and returned to 116 bpm.
--- NOTE | 2018-12-30 17:02 | NUR ---
ECTOPY Patient had small run of sinus tachycardia 147 bpm for 2 seconds and returned to 117 bpm. All other vitals stable. Blood pressure in arterial line labile but maintaining systolic of 89 or greater with a MAP greater than 62. Will continue to monitor and titrate vasopressor therapy per protocol.
--- NOTE | 2018-12-30 19:27 | NUR ---
REPORT Report given to Chen HERNDON, care endorsed.
--- NOTE | 2018-12-30 19:30 | NUR ---
Opening Shift Note Received pt on mechanical ventilator on sedation. Pt does not respond. Absent cough/gag. Small amount of thin cano secretions suctioned out of ET tube. Full assessment done see interventions. OGT in place to LIS draining dark brown fluid. Left radial A-line in place, zeroed and good wave form seen. Left IJ tlc in place, all ports patent. See IV spreadsheet for details. R IJ HD catheter present with dressing CDI. B/L scds in place. Corona catheter in place draining light noam urine to gravity, secured below bladder and free of kinks. All alarms on and audible, bed locked and in lowest position. No indication of pain noted. Pt turned and skin assessment complete. Will continue to monitor closely, pt in full view of RN.
--- NOTE | 2018-12-30 20:20 | NUR ---
A-FIB RVR PT WENT INTO A-FIB RVR OF 150'S. EKG DONE. KEV NOTIFIED. NEW ORDERS RECEIVED FOR AMIODARONE PO 400MG BID.
[2018-12-30] MEDS: AMIODARONE HCL 200 MG TAB PO SCH (21:10)
[2018-12-30] MEDS ORDERED: VASOPRESSIN 20 UNIT/ML ONE (21:47)
[2018-12-31] VITALS (105 sets, daily range): BP systolic 55–137; BP diastolic 31–74
--- NOTE | 2018-12-31 | NUR ---
BLOOD PRESSURE PT'S BLOOD PRESSURE LOW DESPITE OTHER VASOPRESSOR THERAPY, VASOPRESSIN RESTARTED AT THIS TIME.
[2018-12-31] MEDS: fentaNYL Drip 2500mCg/250mlNS 250 ML IV SCH (01:22)
--- NOTE | 2018-12-31 03:00 | NUR ---
RESPIRATORY PT DESATURATING TO 80'S. RT NOTIFIED. FIO2 RAISED TO 60% AT THIS TIME.
[2018-12-31 04:30] LABS: Eosinophils # (auto) 0.4 uL; Hemoglobin 8.9 g/dL (13.5-17.5); Neutrophils # (auto) 19.4 uL; White Blood Cell 21.4 10^3/uL (4.4-10.8)
[2018-12-31 04:35] LABS: Basophils # (auto) 0 uL; Basophils % (auto) 0.2 % (0.0-2.0); Eosinophils % (auto) 1.9 % (0.0-7.0); Hematocrit 26.1 % (41.0-53.0); Lymphocytes % (auto) 4.5 % (10.0-50.0); Mean Corpuscular Hemoglobin 32.6 pg (28.0-32.0); Mean Corpuscular Volume 95.9 fL (80.0-100.0); Monocytes # (auto) 0.6 uL; Neutrophils % (auto) 90.4 % (37.0-80.0); Nucleated Red Blood Cells % 0.1 %; Platelet Count (auto) 54 10^3/uL (140-450); Red Blood Cells 2.72 10^6/uL (4.5-5.90); Red Cell Distribution Width 16.4 % (11.8-14.3)
--- NOTE | 2018-12-31 04:43 | NUR ---
KEV NOTIFIED AT THIS TIME AND MESSAGE LEFT ABOUT PT STATUS NOW MAXED OUT ON VASOPRESSIN, LEVOPHED AND PHENYLEPHRINE. AWAITING ORDERS
[2018-12-31 04:53] LABS: Albumin 2.1 g/dL (3.4-5.0)
[2018-12-31 04:58] LABS: BUN/Creatinine Ratio 15.1; Calcium 6.9 mg/dL (8.5-10.1); Total Protein 5.7 g/dL (6.4-8.2)
[2018-12-31 05:28] LABS: Potassium 5.8 mmol/L (3.5-5.1)
--- NOTE | 2018-12-31 05:45 | NUR ---
BENJAMIN PAGED FOR CRITICAL RESULTS. LEFT MESSAGE WITH ANSWERING SERVICE WILL AWAIT CALL BACK. KEV NOTIFIED. AWAITING CALL BACK.
[2018-12-31] MEDS ORDERED: NOREPINEPHRINE BITARTRATE 2 ML IV ONE (05:50)
[2018-12-31] MEDS: ACCU-CHEK COMFORT CURVE STRIP VI SCH ×5 (05:56→23:30)
[2018-12-31] MEDS: InsuLIN REG 1unit/0.01ml Soln (100units/ml) SC SCH ×5 (05:56→23:32)
[2018-12-31] MEDS: IPRATROPIUM BROM 0.5 MG/2.5ML INH SOL NEB SCH ×3 (06:35→22:15)
--- NOTE | 2018-12-31 06:42 | NUR ---
Respiratory note: RECEIVED PATIENT ON V11 ESPRIT VENT ORALLY INTUBATED WITH AN 8.0 ETT SECURED VIA MOOKIE AT THE 22CM MARKING AT THE LIP, AND MECHANICALLY VENTILATED WITH THE ABOVE CHARTED SETTINGS. SPO2 92%, LUNG SOUNDS DIM T/O, NO SECRETIONS WHEN SUCTIONED. SKIN IS WARM/DRY TO THE TOUCH AND IS INTACT NEAR MOOKIE SITE. THERE IS AN OGT IN PLACE AND SECURED TO THE ETT, A TAMARA CATHETER IS PLACED IN THE RIGHT NECK, A TRIPLE LUMEN CENTRAL LINE IS PLACED IN THE LEFT IJ, AND A LEFT RADIAL ARTERIAL LINE IS IN PLACE AND PATENT. BOTH ARMS HAVE SEVERE PITTING EDEMA, BILATERAL LEGS HAVE MODERATE PITTING EDEMA AND SEQUENTIAL STOCKINGS ARE IN PLACE AND OPERATIONAL. RECTAL TUBE PLACED AND DRAINING. NO NEW CXR TO ASSESS. PATIENT IS UNRESPONSIVE TO ALL STIMULI AND IS OFF SEDATION. HE IS RESTING COMFORTABLY AND TOLERATING VENT WELL, NO CHANGES MADE. VENT PLUGGED INTO RED OUTLET AND ALL ALARMS ARE SET AND AUDIBLE. WILL CONTINUE TO ASSESS PATIENT WELL VENTILATOR FUNCTION. [employer] RUN INLINE.
[2018-12-31] MEDS ORDERED: SODIUM CHL 0.9% 1000 ML BAG XX ONE (07:00)
[2018-12-31] MEDS: PHENYLEPHRINE INJ 80 MG in SODIUM CHL 0.9% 250 ML IV SCH ×4 (07:29→20:34)
--- NOTE | 2018-12-31 07:33 | NUR ---
END OF SHIFT NOTE REPORT GIVEN TO DAY SHIFT RN TO ASSUME CARE
--- NOTE | 2018-12-31 07:58 | NUR ---
CALLED TO INFORM OF CRITICAL LAB VALUE OF 0440 AM ABG. NEW ORDERS RECIEVED. SEE EMR FOR NEW ORDERS.
--- NOTE | 2018-12-31 08:10 | NUR ---
Respiratory note: RR INCREASED TO [address] STINSON'S TELEPHONE ORDER. RN MAINE AWARE OF CHANGE. ABG TO FOLLOW IN 1HR.
--- NOTE | 2018-12-31 08:11 | NUR ---
PT UNSTABLE FOR TRANSPORT TO CT AT THIS TIME PER MAINE HERNDON.
[2018-12-31] MEDS: EPINEPHrine HCL 250 ML IV SCH (08:15)
--- NOTE | 2018-12-31 08:40 | NUR ---
DR. MEJIA HERE TO SEE PATIENT. SEE MD NOTES AND EMR FOR ANY NEW ORDERS.
[2018-12-31] MEDS: cefTRIAXone 1GM/50ML D5W 50 ML IV SCH (08:43)
[2018-12-31] MEDS: DexMEDEtomidine 400 MCG in D5W 5% 96 ML IV SCH (09:18)
--- NOTE | 2018-12-31 09:43 | NUR ---
DR. MADDEN HERE TO SEE PATIENT. SEE MD NOTES AND EMR FOR ANY NEW ORDERS.
--- NOTE | 2018-12-31 09:55 | NUR ---
DR. BOLDEN HERE TO SEE PATIENT. SEE MD NOTES AND EMR FOR ANY NEW ORDERS.
[2018-12-31] MEDS: PANTOPRAZOLE 40 MG/10 ML VIAL INJ IV SCH ×2 (10:00→22:33)
[2018-12-31] MEDS ORDERED: InsuLIN REG 1unit/0.01ml Soln (100units/ml) IV ONE (10:15)
[2018-12-31] MEDS ORDERED: DEXTROSE (50%) 50ML SYRG IV ONE (10:15)
[2018-12-31] MEDS ORDERED: SODIUM BICARBONATE 8.4 % INJ 50ML VIAL IV ONE (10:15)
[2018-12-31] MEDS: BUMETANIDE 2.5mg/10ml (0.25 mg/ml) INJ IV SCH (10:49)
[2018-12-31] MEDS: AMIODARONE HCL 200 MG TAB PO SCH (10:49)
[2018-12-31] MEDS: VASOPRESSIN 50 UNITS in D5W 5% 247.5 ML IV SCH (11:01)
[2018-12-31] MEDS ORDERED: ALBUMIN 25% 100 ML IV ONE ×2 (11:27→11:30)
--- NOTE | 2018-12-31 11:30 | NUR ---
DR. BOO HERE TO SEE PATIENT. SEE MD NOTES AND EMR FOR ANY NEW ORDERS.
--- NOTE | 2018-12-31 11:33 | NUR ---
Respiratory note: VENT CHANGES MADE: RR INCREASED TO 30, PEEP INCREASED TO 10, AND VT DECREASED TO [address] GERARDO'S BEDSIDE ORDERS. YANICK GROVE AT BEDSIDE AND AWARE OF ALL CHANGES.
[2018-12-31] MEDS: DOBUTamine 1000MCG/ML 250 ML IV SCH ×3 (13:36→23:51)
[2018-12-31] MEDS ORDERED: AMIODARONE HCL 900 MG in DEXTROSE 500 ML IV SCH (13:51)
--- NOTE | 2018-12-31 14:00 | NUR ---
DR. ANGULO HERE TO SEE PATIENT. SEE MD NOTES AND EMR FOR ANY NEW ORDERS.
--- NOTE | 2018-12-31 16:03 | NUR ---
Nutrition Follow-up Notes Wt.: 83.9 kg today. Pt's intubated, non-sedated, had dialysis 12/29/18, remains unresponsive, currently NPO, noted with EN support temporarily held since 12/27/18. Pt's previously on Nephro Carb Steady @ 60 ml/hr providing 2592 kcal, 117 gms pro and 1047 ml free water. Noted pt's for active Neurology and GI consults. Estimated needs BW (80 kg)-2000 -2160 kcal (25-27 kcal/kgBW), 96-112 g protein (0.8-1.0 g/kg BW r/t elev RFT). Will continue to monitor pertinent labs and reassess nutrient need prn. reassessed as pt on HD Labs: Gluc 193 H, Na 129 L, K 5.8 H, Cl 94 L, BUN 92 H, Cr 6.08 H, Ca 6.9 L; Tot malvin 3.0 H, AST/ALT 45/126 H, ALP 121 H, Tpro 5.7 L, Alb 2.1 L Skin: Kalen scale 12, high risk, pt's anterior medial sternum abrasion per roll trucker. GI: Pt had 150 ml stool output yesterday per roll trucker. PES: Increased nutrient needs r/t current/chronic medical condition aeb intubated, sedated with order of NPO Altered nutrition related lab values r/t current/chronic medical condition aeb elev RFT hyperglycemia, mod hypoalb Will continue to monitor NPO status, skin status, pertinent labs and weight trend. F/u in 2 to 3 days. Rec.: 1.) If still NPO, consider to resume EN support at lower rate and gradually increase feeding rate of Nephro Carb Steady to 45 ml/hr goal rate as tolerated when medically appropriate. 2.) Albumin continues trending down, on dialysis, consider Prostat 1 pkt BID. 3.) If pt remains NPO, GIT's not working , consider PN support if medically appropriate. 4.) Refer pt to CDE/RD for further nutrition education and weight monitoring upon discharge. 5.) Continue current plan of care.
--- NOTE | 2018-12-31 19:30 | NUR ---
OPEN NOTES Received patient GCS 3, pupils both 5mm and fixed, no cough and gag noted. No limb movement noted as well. Remained intubated, AC mode FIO2 75%. Suctioned secretions per ETT and orally. Oral care done. ECG on paced rhythm, BP supported by pressors: IV Levophed and IV Neosynephrine both on max dose, IV Dobutamine fixed rate at 5mcg/kg/min. OGT clamped with greenish aspirate about 20mls, hypoactive bowel sounds noted. Corona catheter draining to light noam colored urine small amount, had HD today with UF 1L. Flexiseal in placed with watery to loose greenish stool. Tube irrigated with 45mls to facilitate proper drainage. Full assessment done - refer interventions
[2018-12-31] MEDS: AMIODARONE HCL 900 MG in DEXTROSE 500 ML IV SCH (20:30)
--- NOTE | 2018-12-31 20:30 | NUR ---
AMIODARONE Amiodarone IV decrease to 0.5mg/min as per protocol Order received by day shift YANICK Joel
--- NOTE | 2018-12-31 20:50 | NUR ---
FAMILY Patient's and sister at bedside.
[2018-12-31] MEDS ORDERED: EPOETIN ALFA 10,000 UNIT/1 ML VIAL SC ONE (21:00)
--- NOTE | 2018-12-31 21:00 | NUR ---
not on any sedation Addendum: 12/31/18 at 2221 by Francisca Martínez RN Amended: Links added.
[2018-12-31] MEDS: NOREPINEPHRINE 8 MG/250ML KIT 250 ML IV SCH (22:17)
[2019-01-01] VITALS (92 sets, daily range): BP systolic 21–132; BP diastolic 17–67
--- NOTE | 2019-01-01 00:05 | NUR ---
REPOSITIONING NOT DONE Patient's BP very labile with movement Will do turning once more stable
[2019-01-01] MEDS: fentaNYL Drip 2500mCg/250mlNS 250 ML IV SCH (01:22)
[2019-01-01] MEDS: NOREPINEPHRINE 8 MG/250ML KIT 250 ML IV SCH ×3 (02:02→10:56)
--- NOTE | 2019-01-01 03:45 | NUR ---
Patient bathe/linen change Patient cleaned with CHG wipes. Skin integrity assessed for any changes. Partial Linen changed. Patient repositioned for comfort.
--- NOTE | 2019-01-01 04:00 | NUR ---
CENTRAL LINE DRESSING Central line dressing peeling off. Dressing removed. Cleaned aseptically. Covered.
[2019-01-01] MEDS: PHENYLEPHRINE INJ 80 MG in SODIUM CHL 0.9% 250 ML IV SCH ×2 (04:28→10:15)
[2019-01-01 04:39] LABS: Basophils # (auto) 0.1 uL; Platelet Count (auto) 49 10^3/uL (140-450); Red Blood Cells 2.43 10^6/uL (4.5-5.90); White Blood Cell 16.2 10^3/uL (4.4-10.8)
[2019-01-01 04:43] LABS: Basophils % (auto) 0.8 % (0.0-2.0); Eosinophils # (auto) 0.5 uL; Eosinophils % (auto) 3.1 % (0.0-7.0); Hemoglobin 7.8 g/dL (13.5-17.5); Lymphocytes # (auto) 1.1 uL; Lymphocytes % (auto) 6.7 % (10.0-50.0); Mean Corpuscular Hemoglobin 32.2 pg (28.0-32.0); Mean Corpuscular Volume 94.6 fL (80.0-100.0); Monocytes # (auto) 0.4 uL; Monocytes % (auto) 2.3 % (0.0-12.0); Neutrophils # (auto) 14.1 uL; Neutrophils % (auto) 87.1 % (37.0-80.0); Nucleated Red Blood Cells % 0.4 %; Red Cell Distribution Width 15.7 % (11.8-14.3)
[2019-01-01 05:05] LABS: BUN/Creatinine Ratio 13.3; Potassium 4.3 mmol/L (3.5-5.1)
[2019-01-01] MEDS: ACCU-CHEK COMFORT CURVE STRIP VI SCH ×3 (05:44→18:00)
[2019-01-01] MEDS: InsuLIN REG 1unit/0.01ml Soln (100units/ml) SC SCH ×3 (05:46→18:00)
[2019-01-01] MEDS: IPRATROPIUM BROM 0.5 MG/2.5ML INH SOL NEB SCH ×2 (06:02→22:26)
--- NOTE | 2019-01-01 06:05 | NUR ---
Respiratory note: RECEIVED PATIENT ON V11 ESPRIT VENT ORALLY INTUBATED WITH AN 8.0 ETT SECURED VIA MOOKIE AT THE 22CM MARKING AT THE LIP, AND MECHANICALLY VENTILATED WITH THE CHARTED SETTINGS. SPO2 97%, LUNG SOUNDS DIM T/O, NO SECRETIONS WHEN SUCTIONED. SKIN IS WARM/DRY TO THE TOUCH AND IS INTACT NEAR MOOKIE SITE. THERE IS AN OGT IN PLACE AND SECURED TO THE ETT, A TAMARA CATHETER IS PLACED IN THE RIGHT NECK, A TRIPLE LUMEN CENTRAL LINE IS PLACED IN THE LEFT IJ, AND A LEFT RADIAL ARTERIAL LINE IS IN PLACE AND PATENT. BOTH ARMS HAVE SEVERE PITTING EDEMA, BOTH LEGS HAVE MODERATE PITTING EDEMA AND SEQUENTIAL STOCKINGS ARE IN PLACE AND OPREATIONAL. RECTAL TUBE PLACED AND DRAINING. NO AM CXR TO ASSESS. PATIENT IS UNRESPONSIVE TO ALL STIMULI AND IS OFF SEDATION. HE IS RESTNIG COMFORTABLY AND TOLERATING VENT WELL, NO CHANGES MADE. VENT PLUGGED INTO RED OUTLET AND ALL ALARMS ARE SET AND AUDIBLE. WILL CONTINUE TO ASSESS PATIENT WELL VENTILATOR FUNCTION. [employer] RUN INLINE.
--- NOTE | 2019-01-01 06:32 | NUR ---
INFORMED DR. ANGULO OF LATEST HGB RESULTS 7.8 G/DL ORDER RECEIVED : TO TRANSFUSE 2 UNITS OF PACKED CELL
[2019-01-01] MEDS: cefTRIAXone 1GM/50ML D5W 50 ML IV SCH (09:05)
[2019-01-01] MEDS: DOBUTamine 1000MCG/ML 250 ML IV SCH (09:16)
--- NOTE | 2019-01-01 09:38 | NUR ---
PEST CONTROL APPLICATOR CAM TO RE-DRAW LAB FOR TYPE & CROSS, PT GOT RE-BANDED. BLOOD DRAWN TROUGH PT'S A- LINE BY ME.
[2019-01-01] MEDS: PANTOPRAZOLE 40 MG/10 ML VIAL INJ IV SCH (09:51)
[2019-01-01] MEDS: BUMETANIDE 2.5mg/10ml (0.25 mg/ml) INJ IV SCH (09:51)
[2019-01-01] MEDS: VASOPRESSIN 50 UNITS in D5W 5% 247.5 ML IV SCH (10:00)
[2019-01-01] MEDS ORDERED: DOPamine 1600MCG/ML D5W 250 ML IV SCH (10:45)
[2019-01-01] MEDS ORDERED: BUMETANIDE INJECTION 12.5 MG in GIVE UN-DILUTED 0 ML IV SCH (10:45)
[2019-01-01] MEDS: EPINEPHrine HCL 250 ML IV SCH (11:38)
[2019-01-01] MEDS: AMIODARONE HCL 900 MG in DEXTROSE 500 ML IV SCH (11:46)
--- NOTE | 2019-01-01 12:11 | NUR ---
STARTED ON BUMEX GTT AT 0.5 MG/ HR PER TUBE MAKER.
--- NOTE | 2019-01-01 13:00 | NUR ---
PT'S AND FAMILY AT BEDSIDE I DISCUSSED WITH THEM PT'S POOR PROGNOSIS BASED ON MD, NOTES AND NURSING ASSESSMENT PT'S DECIDED TO MAKE PT DNR, TO LEAVE ALL GTT'S ALONE, TO RUN OUT AND NOT TO BE RE-PLACED AND NOT TO GIVE THE BLOOD. PT'S WILL CONTEMPLATE TERMINAL WEAN WITHIN THE NEXT 24 HOURS IF PT STILL SURVIVES. I PAGED DR. ANGULO TO NOTIFIED HIM OF PT'S FAMILY WISHES. AWAITING FOR MD. TO CALL BACK.
--- NOTE | 2019-01-01 17:02 | NUR ---
DR. GERARDO IN ROUNDING ON PT PT'S FAMILY AT BEDSIDE HE ASKED THEM IF THEY HAD ANY QUESTIONS, FAMILY SAID NO. SUGGESTED TO HAVE THE AGRICULTURAL REAL ESTATE AGENT PAGED FOR FAMILY SUPPORT. AGRICULTURAL REAL ESTATE AGENT PAGED AT THIS TIME.
--- NOTE | 2019-01-01 17:50 | NUR ---
BUSINESS MANAGEMENT ASSOCIATE AT BED SIDE. PT'S ROOM FULL WITH PT'S FAMILY. PT'S COMFORT CART. REFILLED BY DIETARY.
--- NOTE | 2019-01-01 18:00 | NUR ---
THERMOREGULATION PT SPIKING HIGH TEMP APPLIED ICE-PACKS ON BOTH ARM PITS. ENCOURAGED PT'S FAMILY TO CALL ME WITH ANY QUESTIONS. ALREADY PROVIDED PT'S FAMILY WITH A LIST OF MORTUARY'S LIST PER PT'S FAMILY REQUEST.
--- NOTE | 2019-01-01 20:05 | NUR ---
PATIENT'S AT BEDSIDE PATIENT'S MELI AT BEDSIDE. UPDATED ON PT'S STATUS AND TALKED ABOUT THE DNR STATUS AND VASOPRESSORS ORDERS. KARI HERNDON TRANSLATED IN [place]. SHE WANTS TO CONTINUE DNR STATUS AND STOP VASOPRESSORS WHEN CURRENT BAG FINISHES.
--- NOTE | 2019-01-01 20:20 | NUR ---
SPOKE TO PT'S BORA IN [place], AT THE REQUEST OF HIS PRIMARY CARE RN MAGNUS TO VERIFY DECISION REGARDING NOT RESTARTING PRESSORS ONCE BAGS ARE COMPLETED. STATES SHE UNDERSTAND ABOUT THEM BEING TURNED OFF WHEN COMPLETED. ALSO STATES HE IS TO REMAIN INTUBATED UNTIL PASS.
--- NOTE | 2019-01-01 20:21 | NUR ---
Dobutrex drip finished and turned off.
--- NOTE | 2019-01-01 20:31 | NUR ---
EKG SHOWS ASYSTOLE. NO PULSE.NO HEART SOUND AUSCULTATED. ALL FAMILY MEMBERS AT BEDSIDE.
--- NOTE | 2019-01-01 21:28 | NUR ---
CALLED [employer] NOT A CANDIDATE FOR ORGAN DONATION. CASE NO [id number]
--- NOTE | 2019-01-01 22:00 | NUR ---
JACQUELINE FABIAN PRONOUNCED PATIENT'S .
--- NOTE | 2019-01-01 22:27 | NUR ---
CALLED CAN CLOSING MACHINE OPERATOR
--- NOTE | 2019-01-02 00:40 | NUR ---
INDUSTRIAL TRUCK DRIVER RELEASED BODY
--- NOTE | 2019-01-02 01:00 | NUR ---
POST MORTEM CARE POST MORTEM CARE IS GIVEN AND BODY PLACED IN A BODY BAG.
--- NOTE | 2019-01-02 01:26 | NUR ---
CALLED MORTUARY TO ENDBAND SIZER THE BODY. Addendum: 01/02/19 at 0133 by Radha Abrams RN [place] [facility] [id number] [phone]
[2019-01-02] MEDS ORDERED: SODIUM CHL 0.9% 1000 ML BAG XX ONE (07:00)
[2019-01-02] MEDS ORDERED: EPOETIN ALFA 10,000 UNIT/1 ML VIAL SC ONE (21:00)
== END 2019-01-01 20:31 | disposition expired | DRG 870 ==
LOC: EDBD 20:14 → ER 20:17 → EDBD 20:17 → TELE 20:18 → ICU WEST 12-21 03:58
PROVIDERS: ADMIT Internal Medicine Cardiovascular Disease; ATTEND Internal Medicine Cardiovascular Disease
PROC: 5A1955Z Respiratory Ventilation, Greater than 96 Consecutive Hours (ICD-10-PCS; principal; 2018-12-20)
PROC: 0BH17EZ Insertion of Endotracheal Airway into Trachea, Via Natural or Artificial Opening (ICD-10-PCS; 2018-12-20)
PROC: 5A12012 Performance of Cardiac Output, Single, Manual (ICD-10-PCS; 2018-12-20)
PROC: 5A12012 Performance of Cardiac Output, Single, Manual (ICD-10-PCS; 2018-12-20)
PROC: 02HV33Z Insertion of Infusion Device into Superior Vena Cava, Percutaneous Approach (ICD-10-PCS; 2018-12-21)
PROC: B548ZZA Ultrasonography of Superior Vena Cava, Guidance (ICD-10-PCS; 2018-12-21)
PROC: 03HY32Z Insertion of Monitoring Device into Upper Artery, Percutaneous Approach (ICD-10-PCS; 2018-12-22)
PROC: 02HV33Z Insertion of Infusion Device into Superior Vena Cava, Percutaneous Approach (ICD-10-PCS; 2018-12-24)
PROC: B548ZZA Ultrasonography of Superior Vena Cava, Guidance (ICD-10-PCS; 2018-12-24)
PROC: 5A1D70Z Performance of Urinary Filtration, Intermittent, Less than 6 Hours Per Day (ICD-10-PCS; 2018-12-25)
PROC: 30233N1 Transfusion of Nonautologous Red Blood Cells into Peripheral Vein, Percutaneous Approach (ICD-10-PCS; 2018-12-26)
PROC: 5A1D70Z Performance of Urinary Filtration, Intermittent, Less than 6 Hours Per Day (ICD-10-PCS; 2018-12-26)
PROC: 5A1D70Z Performance of Urinary Filtration, Intermittent, Less than 6 Hours Per Day (ICD-10-PCS; 2018-12-27)
PROC: 5A1D70Z Performance of Urinary Filtration, Intermittent, Less than 6 Hours Per Day (ICD-10-PCS; 2018-12-28)
PROC: 5A1D70Z Performance of Urinary Filtration, Intermittent, Less than 6 Hours Per Day (ICD-10-PCS; 2018-12-29)
PROC: 5A1D70Z Performance of Urinary Filtration, Intermittent, Less than 6 Hours Per Day (ICD-10-PCS; 2018-12-31)
DX: A41.9 Sepsis, unspecified organism (principal); J96.01 Acute respiratory failure with hypoxia; N17.0 Acute kidney failure with tubular necrosis; R65.21 Severe sepsis with septic shock; G93.41 Metabolic encephalopathy; I21.9 Acute myocardial infarction, unspecified; E87.2 Acidosis; E87.1 Hypo-osmolality and hyponatremia; G93.1 Anoxic brain damage, not elsewhere classified; J91.8 Pleural effusion in other conditions classified elsewhere; R57.0 Cardiogenic shock; I25.10 Atherosclerotic heart disease of native coronary artery without angina pectoris; I50.9 Heart failure, unspecified; J44.9 Chronic obstructive pulmonary disease, unspecified; E11.21 Type 2 diabetes mellitus with diabetic nephropathy; E11.40 Type 2 diabetes mellitus with diabetic neuropathy, unspecified; E78.5 Hyperlipidemia, unspecified; E78.00 Pure hypercholesterolemia, unspecified; E87.5 Hyperkalemia; I25.2 Old myocardial infarction; I25.5 Ischemic cardiomyopathy; Z66 Do not resuscitate; D69.6 Thrombocytopenia, unspecified; E88.09 Other disorders of plasma-protein metabolism, not elsewhere classified; F32.9 Major depressive disorder, single episode, unspecified; Z95.1 Presence of aortocoronary bypass graft; Z95.810 Presence of automatic (implantable) cardiac defibrillator; Z95.0 Presence of cardiac pacemaker; Z79.899 Other long term (current) drug therapy; Z95.5 Presence of coronary angioplasty implant and graft; Z82.49 Family history of ischemic heart disease and other diseases of the circulatory system
CPT/HCPCS: 36415; 36600; 70450; 71045; 80048; 80053; 80074; 81001; 82570; 82728; 82805; 82962; 83540; 83550; 83605; 83735; 83880; 84300; 84484; 85007; 85014; 85018; 85025; 85027; 85610; 85730; 86850; 86900; 86901; 86920; 87040; 87070; 87081; 87086; 87205; 90935; 92950; 93005; 94002; 94003; 94640; 95819; C9113; G0378; J0171; J0696; J0885; J1642; J1815; J1956; J2250; J2543; J2704; J3480; J3490; J7060; P9047